=== PATIENT | female | born 1960 | race American Indian/Alaskan Native ===

== ENCOUNTER 2017-11-13 13:43 | Inpatient (IN) | payer SELFPAY ==
--- NOTE | 2017-11-13 16:22 | Emergency Department Report ---
ED Chest Pain HPI - General Chief Complaint: High BP Stated Complaint: HEAD PAIN/DIZZY Time Seen by Provider: 11/13/17 16:12 Source: patient Mode of arrival: Ambulatory Limitations: No Limitations - History of Present Illness Initial Comments: She is a 57-year-old female presents to emergency room with complaints of dizziness, lightheaded, chest pain, shortness of breath and vaginal bleeding. Patient states she's had vaginal bleeding secondary to her fibroids since 2017. Patient states her chest pain or shortness of breath are better with rest and worse with exertion. Patient states the chest pain is a 5 out of 10 and is not radiating into the center of her chest. Patient states that her dizziness and lightheaded and chest pain, shortness of breath started approximately 2 days ago. Patient states she had extremely high blood pressure at home at 283/100. Patient states she would also like to be checked for anemia due to her month-long vaginal bleeding. 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 MD Complaint: chest pain -: Sudden Onset: during rest Pain Location: substernal, left chest Pain Radiation: none Severity: moderate Severity scale (0 -10): 5 Quality: tightness Consistency: constant Improves With: rest Worsens With: exertion re: dyspnea. denies: nausea, vomting, diaphoresis, sense of impending doom Other Symptoms: denies: cough, fever, syncope, rash, acid taste in mouth, leg swelling, palpitations, burping Treatments Prior to Arrival: none Aspirin use within the Past 7 Days: (0) No - Related Data On Oral Contraceptives: No Allergies Allergy/AdvReac Type Severity Reaction Status Date / Time morphine Allergy Unknown Verified 11/13/17 15:45 Heart Score - HEART Score History: Moderately suspicious EKG: Non-specific Age: 45-65 Risk factors: 1-2 risk factors Troponin: < normal limit HEART Score: 4 ED Review of Systems ROS: Stated complaint: HEAD PAIN/DIZZY Other details as noted in HPI ED Past Medical Hx - Past Medical History Previous Medical History?: Yes Hx Hypertension: Yes Hx Diabetes: Yes Hx Psychiatric Treatment: Yes (anxiety) Additional medical history: fibroids - Surgical History Past Surgical History?: Yes Additional Surgical History: tonsilectomy/ myomectomy - Social History Smoking Status: Current Every Day Smoker Substance Use Type: None ED Physical Exam - General Limitations: No Limitations General appearance: alert, in no apparent distress - Head Head exam: Present: atraumatic, normocephalic - Eye Eye exam: Present: normal appearance, PERRL, EOMI, other (pale sclera) Pupils: Present: normal accommodation - ENT ENT exam: Present: mucous membranes moist - Neck Neck exam: Present: normal inspection - Respiratory Respiratory exam: Present: normal lung sounds bilaterally. Absent: respiratory distress - Cardiovascular Cardiovascular Exam: Present: regular rate, normal rhythm. Absent: systolic murmur, diastolic murmur, rubs, gallop - GI/Abdominal GI/Abdominal exam: Present: soft, normal bowel sounds - Extremities Exam Extremities exam: Present: normal inspection - Back Exam Back exam: Present: normal inspection - Neurological Exam Neurological exam: Present: alert, oriented X3 - Psychiatric Psychiatric exam: Present: normal affect, normal mood - Skin Skin exam: Present: warm, dry, intact, normal color. Absent: rash ED Course Vital Signs 11/13/17 11/13/17 11/13/17 14:19 14:31 14:43 Temperature 98.7 F Pulse Rate 80 78 Respiratory 12 13 18 Rate Blood Pressure 163/58 163/58 Blood Pressure 163/58 [Left] O2 Sat by Pulse 100 100 Oximetry 11/13/17 11/13/17 11/13/17 14:45 15:01 15:15 Temperature Pulse Rate 77 77 76 Respiratory 20 17 19 Rate Blood Pressure 163/58 141/54 156/69 Blood Pressure [Left] O2 Sat by Pulse 99 100 100 Oximetry 11/13/17 11/13/17 11/13/17 15:30 15:45 16:00 Temperature Pulse Rate 74 76 74 Respiratory 20 20 22 Rate Blood Pressure 152/71 161/71 Blood Pressure [Left] O2 Sat by Pulse 100 100 100 Oximetry 11/13/17 11/13/17 11/13/17 16:15 16:31 16:45 Temperature Pulse Rate 79 78 84 Respiratory 21 22 16 Rate Blood Pressure 174/67 172/71 Blood Pressure [Left] O2 Sat by Pulse 100 100 100 Oximetry 11/13/17 11/13/17 11/13/17 17:01 17:15 17:30 Temperature Pulse Rate 108 H 87 78 Respiratory 14 21 Rate Blood Pressure 161/71 161/71 137/69 Blood Pressure [Left] O2 Sat by Pulse 98 99 Oximetry 11/13/17 11/13/17 11/13/17 17:45 18:00 18:15 Temperature Pulse Rate 77 75 75 Respiratory 21 17 20 Rate Blood Pressure 137/69 166/79 152/70 Blood Pressure [Left] O2 Sat by Pulse 99 99 100 Oximetry 11/13/17 11/13/17 11/13/17 18:30 18:45 19:00 Temperature Pulse Rate 85 77 76 Respiratory 19 18 20 Rate Blood Pressure 159/60 161/65 179/76 Blood Pressure [Left] O2 Sat by Pulse 100 100 100 Oximetry - Reevaluation(s) Reevaluation #1: Discussed all results with patient. Patient agrees plan of care and admission. Patient will be admitted to the hospitalist service. 11/13/17 19:27 - Consultations Consultation #1: Was consulted for admission. Hospitalist to admit patient and assume care. Report given to Dr. Lindquist 11/13/17 19:27 JOSEY score - Josey Score Age > 65: (0) No Aspirin use within the Past 7 Days: (0) No 3 or more CAD Risk Factors: (0) No 2 or more Angina events in past 24 hrs: (1) Yes Known CAD with more than 50% Stenosis: (0) No Elevated Cardiac Markers: (0) No ST Deviation Greater than 0.5mm: (0) No JOSEY Score: 1 ED Medical Decision Making - Lab Data Result diagrams: 11/13/17 16:00 11/13/17 16:00 - EKG Data -: EKG Interpreted by Pr EKG shows normal: sinus rhythm, axis, intervals, QRS complexes, ST-T waves Rate: normal - EKG Data Interpretation: [facility] - Medical Decision Making Patient is a 57-year-old female presents to emergency room with complaints of chest pain shortness of breath and heavy vaginal bleeding. Patient states vaginal bleeding for 1 month. Patient was admitted to hospitalist service for further evaluation treatment. Patient was admitted also to rule out ACS and for transfusion of extremely low H&H from active bleeding. Patient PRBCs be started in the ER. Initial cardiac workup was negative. EKG as follows. Patient's UA was positive for leukocyte and a uti. She'll be given antibiotics and fluids. - Differential Diagnosis anemia of acute blood loss, cp, sob, GOMEZ, ACS, UTI. Critical Care Time: Yes Critical care attestation.: If time is entered above; I have spent that time in minutes in the direct care of this critically ill patient, excluding procedure time. Critical Care Time: 35 minutes for cc time ED Disposition Clinical Impression: Anemia due to acute blood loss, SOB (shortness of breath), GOMEZ (dyspnea on exertion) Chest pain Qualifiers: Chest pain type: unspecified Qualified Code(s): R07.9 - Chest pain, unspecified UTI (urinary tract infection) Qualifiers: Urinary tract infection type: acute cystitis Hematuria presence: with hematuria Qualified Code(s): N30.01 - Acute cystitis with hematuria Disposition: 09 OP ADMIT IP TO THIS HOSP Is pt being admited?: Yes Does the pt Need Aspirin: No Condition: Critical Time of Disposition: 19:27
[2017-11-13 16:35] LABS: Hematocrit 25.5 % (30.3-42.9); Hemoglobin 7.1 gm/dl (10.1-14.3); Mean Corpuscular HGB Conc 28 % (30-34); Mean Corpuscular Hemoglobin 18 pg (28-32); Mean Corpuscular Volume 65 fl (79-97); Platelet Count 227 K/mm3 (140-440); Red Blood Count 3.93 M/mm3 (3.65-5.03); Red Cell Distribution Width 22.3 % (13.2-15.2)
[2017-11-13 17:39] LABS: Basophils % (Manual) 0 % (0.0-1.8); RBC Morphology Normal; Total Cells Counted 100
[2017-11-13 18:15] LABS: Bacteria,Urine 3+ /HPF (Negative); Bilirubin,Urine NEG (Negative); Blood,Urine LG (Negative); Color,Urine Yellow (Yellow); Mucus,Urine FEW /HPF; Urobilinogen,Urine < 2.0 mg/dL (<2.0)
[2017-11-13 18:17] LABS: RBC,Urine > 182.0 /HPF (0.0-6.0)
[2017-11-13 18:44] LABS: BUN/Creatinine Ratio 18; Blood Urea Nitrogen 9 mg/dL (7-17); Calcium 8.5 mg/dL (8.4-10.2); Hemolysis Index 0
[2017-11-13] MEDS ORDERED: NACL 0.9% 500 ML 500 ML IV ONE (19:30)
[2017-11-13] MEDS ORDERED: ROCEPHIN/NS 1 GM/50 ML 1 GM/50 ML BAG IV ONE (20:54)
[2017-11-13] MEDS ORDERED: DILAUDID IV ONE (22:50)
[2017-11-13] MEDS ORDERED: SODIUM CHLORIDE FLUSH SYRINGE 10 ML IV PRN (23:14)
[2017-11-13] MEDS ORDERED: TYLENOL PO PRN (23:14)
[2017-11-13] MEDS ORDERED: ZOFRAN IV PRN (23:14)
[2017-11-13] MEDS ORDERED: MORPHINE IV PRN (23:14)
--- NOTE | 2017-11-13 23:14 | History and Physical Report ---
History of Present Illness Date of examination: 11/13/17 History of present illness: 57-year-old lady with a history of hypertension, diabetes, anxiety, fibroids,'s emergency room with complaint of feeling lightheaded, dizzy, shortness of breath 3 days. She has been having vaginal bleeding since October 05, heavy bleeding. Also complaining of chest pain in the left chest, shooting pain, 3 days, intermittent to 1 minute, no radiation, cannot identify exacerbating or relieving factors. No nausea vomiting, diaphoresis, palpitation Review of systems Constitutional: no weight loss, chills, fever Ears, eyes, nose, mouth and throat: no nasal congestion, no nasal discharge, no sinus pressure, no vision change, no red eye. Neck: No neck pain or rigidity. Cardiovascular: +chest pain Respiratory: no cough, shortness of breath Gastrointestinal: no abdominal pain hematochezia Genitourinary : no frequency , no hematuria Musculoskeletal: no joint swelling or muscle ache Integumentary: no rash, no pruritis Neurological: no parathesias, no numbness, no focal weakness Endocrine: no cold or heat intolerance, no polyuria or polydipsia Hematologic/Lymphatic: no easy bruising, no easy bleeding, no gland swelling Allergic/Immunologic: no urticaria, no angioedema. PAST MEDICAL HISTORY: None PAST SURGICAL HISTORY: Myomectomy, tonsillectomy SOCIAL HISTORY: No alcohol, no drugs, tobacco FAMILY HISTORY: Hypertension Medications and Allergies Allergies Allergy/AdvReac Type Severity Reaction Status Date / Time morphine Allergy Unknown Verified 11/13/17 15:45 Home Medications Medication Instructions Recorded Confirmed Last Taken Type Ferrous Sulfate [Iron] 325 mg PO QAM 11/13/17 11/13/17 Unknown History Lisinopril [Zestril] 10 mg PO DAILY 11/13/17 11/13/17 Unknown History Mv,Rodrick,Min/Iron/Folic Acid/Lut 1 each PO DAILY 11/13/17 11/13/17 Unknown History [Complete Multi Tablet] Ranitidine HCl [Zantac 150 MG TAB] 150 mg PO BID 11/13/17 11/13/17 Unknown History Exam - Physical Exam Narrative exam: Gen. appearance: Patient lying in bed, no apparent distress HEENT: Normocephalic, atraumatic, pupils equally round and reactive to light, extraocular movement intact, and no sclericterus,. No JVD or thyromegaly or nodule,neck supple, no carotid bruit ,mucous membranes moist, no exudate or erythema Heart: S1, S2, regular rate and rhythm Lungs: Clear bilaterally, breathing comfortable Abdomen: Positive bowel sounds, non-tender, nondistended, no organomegaly Extremity:no edema cyanosis, clubbing Skin: no rash, dry, warm Neuro: Oriented 3, cranial nerves II-12 intact, speech is fluent, motor and sensory intact - Constitutional Vitals: Temp Pulse Resp BP Pulse Ox 98.5 F 87 22 169/75 100 11/13/17 21:15 11/13/17 22:45 11/13/17 22:45 11/13/17 22:45 11/13/17 22:45 Results - Labs CBC & Chem 7: 11/13/17 16:00 11/13/17 16:00 Labs: Abnormal lab results 11/13/17 11/13/17 11/13/17 Range/Units 15:57 16:00 16:00 Hgb 7.1 L (10.1-14.3) gm/dl Hct 25.5 L (30.3-42.9) % MCV 65 L (79-97) fl MCH 18 L (28-32) pg MCHC 28 L (30-34) % RDW 22.3 H (13.2-15.2) % Lymphocytes % (Manual) 38.0 H (13.4-35.0) % Monocytes % (Manual) 8.0 H (0.0-7.3) % Chloride 107.7 H (98-107) mmol/L Carbon Dioxide 21 L (22-30) mmol/L Creatinine 0.5 L (0.7-1.2) mg/dL Urine WBC (Auto) (0.0-6.0) /HPF Crossmatch See Detail 11/13/17 Range/Units 16:55 Hgb (10.1-14.3) gm/dl Hct (30.3-42.9) % MCV (79-97) fl MCH (28-32) pg MCHC (30-34) % RDW (13.2-15.2) % Lymphocytes % (Manual) (13.4-35.0) % Monocytes % (Manual) (0.0-7.3) % Chloride (98-107) mmol/L Carbon Dioxide (22-30) mmol/L Creatinine (0.7-1.2) mg/dL Urine WBC (Auto) 146.0 H (0.0-6.0) /HPF Crossmatch - Imaging and Cardiology EKG: image reviewed Assessment and Plan Assessment Vaginal bleeding secondary to fibroids Symptomatic anemia Chest pain most likely secondary to anemia Diabetes Hypertension Plan Admit medicine transfuse blood consult STONECUTTER HAND Check cardiac cardiac enzymes, stress test DVT prophylaxis checkfingersticks and initiate insulin sliding scale DVT prophylaxis
[2017-11-13] MEDS ORDERED: APRESOLINE IV PRN (23:24)
[2017-11-14 02:21] LABS: Creatine Kinase MB 1.9 ng/mL (0.0-4.0)
[2017-11-14] MEDS: DILAUDID IV PRN ×3 (03:42→20:46)
[2017-11-14 05:56] LABS: Mean Corpuscular HGB Conc 32 % (30-34); Platelet Count 331 K/mm3 (140-440); Red Blood Count 2.43 M/mm3 (3.65-5.03)
[2017-11-14 05:59] LABS: Hemoglobin 5.1 gm/dl (10.1-14.3); Mean Corpuscular Hemoglobin 21 pg (28-32); Mean Corpuscular Volume 66 fl (79-97)
[2017-11-14 06:07] LABS: BUN/Creatinine Ratio 18; Blood Urea Nitrogen 9 mg/dL (7-17); Calcium 8.5 mg/dL (8.4-10.2); Hemolysis Index 0
[2017-11-14 06:13] LABS: Creatine Kinase MB 1.7 ng/mL (0.0-4.0)
[2017-11-14] MEDS ORDERED: NACL 0.9% 500 ML 500 ML IV ONE (06:25)
[2017-11-14 08:37] LABS: Anisocytosis 2+; Hypochromasia 2+; Ovalocytes Few; Poikilocytosis 1+; Total Cells Counted 100
[2017-11-14 08:38] LABS: Platelet Estimate Cons
--- NOTE | 2017-11-14 08:42 | Progress Note ---
Assessment and Plan Assessment and plan: 57-year-old female with past medical history significant for anemia, diabetes mellitus presented to the emergency department with complaints of dizziness, shortness of breath and chest pain. Patient has been having vaginal bleeding for over one month. The ED lab showed that she is anemic. Hemoglobin is 5.1 Symptomatic anemia secondary to vagina bleeding - 3 units of packed RBC transfusion ordered - We will follow H&H, transfused as needed Vaginal bleeding - CUSTOM BOW MAKER consulted -Transvaginal/pelvic ultrasound ordered Chest pain - Likely due to anemia - We'll do stress test once stable DVT prophylaxis - SCDs Disposition - Continue inpatient care History Interval history: Patient was seen and evaluated at the bedside, she was getting blood transfusion by the time I saw her. She was complaining itching. Dizziness and shortness of breath subsided. Hospitalist Physical - Physical exam Narrative exam: Not in cardiopulmonary distress. The patient is obese. Vital signs as documented. Head exam is unremarkable. No scleral icterus . Neck is without jugular venous distension, thyromegaly, or carotid bruits. Lungs are clear to auscultation. Cardiac exam reveals regular rate and Rhythm. First and second heart sounds normal. No murmurs, rubs or gallops. Abdominal exam reveals normal bowel sounds, no masses, no organomegaly and no aortic enlargement. Extremities are nonedematous and both femoral and pedal pulses are normal. DATA ANALYSIS MANAGER: Alert and oriented 3. No focal weakness. - Constitutional Vitals: Temp Pulse Resp BP Pulse Ox 97.6 F 77 20 144/69 100 11/14/17 03:44 11/14/17 05:01 11/14/17 03:44 11/14/17 05:01 11/14/17 05:01 Results - Labs CBC & Chem 7: 11/14/17 05:06 11/14/17 05:06 Labs: Laboratory Last Values WBC 8.2 K/mm3 (4.5-11.0) 11/14/17 05:06 RBC 2.43 M/mm3 (3.65-5.03) L 11/14/17 05:06 Hgb 5.1 gm/dl (10.1-14.3) L* 11/14/17 05:06 Hct 16.0 % (30.3-42.9) L* D 11/14/17 05:06 MCV 66 fl (79-97) L 11/14/17 05:06 MCH 21 pg (28-32) L 11/14/17 05:06 MCHC 32 % (30-34) 11/14/17 05:06 RDW 25.0 % (13.2-15.2) H 11/14/17 05:06 Plt Count 331 K/mm3 (140-440) 11/14/17 05:06 Add Manual Diff Complete 11/13/17 16:00 Total Counted 100 11/13/17 16:00 Seg Neuts % (Manual) 53.0 % (40.0-70.0) 11/13/17 16:00 Band Neutrophils % 0 % 11/13/17 16:00 Lymphocytes % (Manual) 38.0 % (13.4-35.0) H 11/13/17 16:00 Reactive Lymphs % (Man) 0 % 11/13/17 16:00 Monocytes % (Manual) 8.0 % (0.0-7.3) H 11/13/17 16:00 Eosinophils % (Manual) 1.0 % (0.0-4.3) 11/13/17 16:00 Basophils % (Manual) 0 % (0.0-1.8) 11/13/17 16:00 Metamyelocytes % 0 % 11/13/17 16:00 Myelocytes % 0 % 11/13/17 16:00 Promyelocytes % 0 % 11/13/17 16:00 Blast Cells % 0 % 11/13/17 16:00 Nucleated RBC % Not Reportable 11/13/17 16:00 Seg Neutrophils # Man 2.4 K/mm3 (1.8-7.7) 11/13/17 16:00 Band Neutrophils # 0.0 K/mm3 11/13/17 16:00 Lymphocytes # (Manual) 1.7 K/mm3 (1.2-5.4) 11/13/17 16:00 Abs React Lymphs (Man) 0.0 K/mm3 11/13/17 16:00 Monocytes # (Manual) 0.4 K/mm3 (0.0-0.8) 11/13/17 16:00 Eosinophils # (Manual) 0.0 K/mm3 (0.0-0.4) 11/13/17 16:00 Basophils # (Manual) 0.0 K/mm3 (0.0-0.1) 11/13/17 16:00 Metamyelocytes # 0.0 K/mm3 11/13/17 16:00 Myelocytes # 0.0 K/mm3 11/13/17 16:00 Promyelocytes # 0.0 K/mm3 11/13/17 16:00 Blast Cells # 0.0 K/mm3 11/13/17 16:00 WBC Morphology Not Reportable 11/13/17 16:00 Hypersegmented Neuts Not Reportable 11/13/17 16:00 Hyposegmented Neuts Not Reportable 11/13/17 16:00 Hypogranular Neuts Not Reportable 11/13/17 16:00 Smudge Cells Not Reportable 11/13/17 16:00 Toxic Granulation Not Reportable 11/13/17 16:00 Toxic Vacuolation Not Reportable 11/13/17 16:00 Dohle Bodies Not Reportable 11/13/17 16:00 Pelger-Huet Anomaly Not Reportable 11/13/17 16:00 Sacha Rods Not Reportable 11/13/17 16:00 Platelet Estimate Not Reportable 11/13/17 16:00 Clumped Platelets Not Reportable 11/13/17 16:00 Plt Clumps, EDTA Not Reportable 11/13/17 16:00 Large Platelets Not Reportable 11/13/17 16:00 Giant Platelets Not Reportable 11/13/17 16:00 Platelet Satelliting Not Reportable 11/13/17 16:00 Plt Morphology Comment Not Reportable 11/13/17 16:00 RBC Morphology Normal 11/13/17 16:00 Dimorphic RBCs Not Reportable 11/13/17 16:00 Polychromasia Not Reportable 11/13/17 16:00 Hypochromasia Not Reportable 11/13/17 16:00 Poikilocytosis Not Reportable 11/13/17 16:00 Anisocytosis Not Reportable 11/13/17 16:00 Microcytosis Not Reportable 11/13/17 16:00 Macrocytosis Not Reportable 11/13/17 16:00 Spherocytes Not Reportable 11/13/17 16:00 Pappenheimer Bodies Not Reportable 11/13/17 16:00 Sickle Cells Not Reportable 11/13/17 16:00 Target Cells Not Reportable 11/13/17 16:00 Tear Drop Cells Not Reportable 11/13/17 16:00 Ovalocytes Not Reportable 11/13/17 16:00 Helmet Cells Not Reportable 11/13/17 16:00 [place] Bodies Not Reportable 11/13/17 16:00 Dow[place] Rings Not Reportable 11/13/17 16:00 Silvana Cells Not Reportable 11/13/17 16:00 Bite Cells Not Reportable 11/13/17 16:00 Crenated Cell Not Reportable 11/13/17 16:00 Elliptocytes Not Reportable 11/13/17 16:00 Acanthocytes (Spur) Not Reportable 11/13/17 16:00 Rouleaux Not Reportable 11/13/17 16:00 Hemoglobin C Crystals Not Reportable 11/13/17 16:00 Schistocytes Not Reportable 11/13/17 16:00 Malaria parasites Not Reportable 11/13/17 16:00 [place] Bodies Not Reportable 11/13/17 16:00 Hem Pathologist Commnt No 11/13/17 16:00 Sodium 138 mmol/L (137-145) 11/14/17 05:06 Potassium 3.7 mmol/L (3.6-5.0) 11/14/17 05:06 Chloride 102.0 mmol/L (98-107) 11/14/17 05:06 Carbon Dioxide 22 mmol/L (22-30) 11/14/17 05:06 Anion Gap 18 mmol/L 11/14/17 05:06 BUN 9 mg/dL (7-17) 11/14/17 05:06 Creatinine 0.5 mg/dL (0.7-1.2) L 11/14/17 05:06 Estimated GFR > 60 ml/min 11/14/17 05:06 BUN/Creatinine Ratio 18 % 11/14/17 05:06 Glucose 109 mg/dL (65-100) H 11/14/17 05:06 Calcium 8.5 mg/dL (8.4-10.2) 11/14/17 05:06 Total Creatine Kinase 72 units/L (30-135) 11/14/17 05:06 CK-MB (CK-2) 1.7 ng/mL (0.0-4.0) 11/14/17 05:06 CK-MB (CK-2) Rel Index 2.3 (0-4) 11/14/17 05:06 Troponin T < 0.010 ng/mL (0.00-0.029) 11/14/17 05:06 NT-Pro-B Natriuret Pep 220.1 pg/mL (0-900) 11/13/17 16:00 Urine Color Yellow (Yellow) 11/13/17 16:55 Urine Turbidity Slightly-cloudy (Clear) 11/13/17 16:55 Urine pH 6.0 (5.0-7.0) 11/13/17 16:55 Ur Specific [place] 1.013 (1.003-1.030) 11/13/17 16:55 Urine Protein 100 mg/dl mg/dL (Negative) 11/13/17 16:55 Urine Glucose (UA) Neg mg/dL (Negative) 11/13/17 16:55 Urine Ketones Neg mg/dL (Negative) 11/13/17 16:55 Urine Blood Lg (Negative) 11/13/17 16:55 Urine Nitrite Neg (Negative) 11/13/17 16:55 Urine Bilirubin Neg (Negative) 11/13/17 16:55 Urine Urobilinogen < 2.0 mg/dL (<2.0) 11/13/17 16:55 Ur Leukocyte Esterase Mod (Negative) 11/13/17 16:55 Urine WBC (Auto) 146.0 /HPF (0.0-6.0) H 11/13/17 16:55 Urine RBC (Auto) > 182.0 /HPF (0.0-6.0) 11/13/17 16:55 U Epithel Cells (Auto) 7.0 /HPF (0-13.0) 11/13/17 16:55 Urine Bacteria (Auto) 3+ /HPF (Negative) 11/13/17 16:55 Urine Mucus Few /HPF 11/13/17 16:55 Urine Yeast (Budding) 3+ /HPF 11/13/17 16:55 Blood Type O POSITIVE 11/13/17 15:57 Antibody Screen Negative 11/13/17 15:57 Crossmatch See Detail 11/13/17 15:57
[2017-11-14] MEDS ORDERED: APRESOLINE IV PRN (10:01)
[2017-11-14] MEDS: SODIUM CHLORIDE FLUSH SYRINGE 10 ML IV SCH ×2 (10:32→22:39)
--- NOTE | 2017-11-14 11:10 | Ultrasound Report ---
ULTRASOUND PELVIS COMPLETE - TRANSABDOMINAL AND TRANSVAGINAL: INDICATION: Postmenopausal bleeding. COMPARISON: None similar at this institution. FINDINGS: Transabdominal and transvaginal pelvic sonography performed in this postmenopausal patient demonstrates a 13.2 x 8.5 x 9.3 cm anteverted, heterogeneous uterus with an approximately 6.1 x 5.6 x 6.1 cm mid to lower uterine solid mass centrally as on endovaginal image 13. Endometrium appears displaced with echogenic stripe thickness estimated at 2.5 cm towards the fundus, endovaginal image 11, where felt seen. Tiny nabothian cyst noted. No significant pelvic free fluid. Right ovary not visualized. Approximately 6 x 5.9 x 5.7 cm left ovary may demonstrate a 4.6 x 4.5 cm intrinsic cyst as on endovaginal images 19-20. CONCLUSION: 1. Enlarged uterus with mid to lower uterine mass, presumably a fibroid, as described. 2. Prominent/thickened endometrium for postmenopausal state. STUD SETTER correlation suggested. 3. Left ovarian cyst/enlargement. 4. Right ovary not visualized. Thank you for the opportunity to participate in this patient's care.
--- NOTE | 2017-11-14 11:10 | Ultrasound Report ---
ULTRASOUND PELVIS COMPLETE - TRANSABDOMINAL AND TRANSVAGINAL: INDICATION: Postmenopausal bleeding. COMPARISON: None similar at this institution. FINDINGS: Transabdominal and transvaginal pelvic sonography performed in this postmenopausal patient demonstrates a 13.2 x 8.5 x 9.3 cm anteverted, heterogeneous uterus with an approximately 6.1 x 5.6 x 6.1 cm mid to lower uterine solid mass centrally as on endovaginal image 13. Endometrium appears displaced with echogenic stripe thickness estimated at 2.5 cm towards the fundus, endovaginal image 11, where felt seen. Tiny nabothian cyst noted. No significant pelvic free fluid. Right ovary not visualized. Approximately 6 x 5.9 x 5.7 cm left ovary may demonstrate a 4.6 x 4.5 cm intrinsic cyst as on endovaginal images 19-20. CONCLUSION: 1. Enlarged uterus with mid to lower uterine mass, presumably a fibroid, as described. 2. Prominent/thickened endometrium for postmenopausal state. CORPORATE SPECIALIST correlation suggested. 3. Left ovarian cyst/enlargement. 4. Right ovary not visualized. Thank you for the opportunity to participate in this patient's care.
[2017-11-14] MEDS ORDERED: NACL 0.9% 500 ML 500 ML IV NR (11:30)
[2017-11-14] MEDS: ROCEPHIN/NS 1 GM/50 ML 1 GM/50 ML BAG IV SCH (12:05)
--- NOTE | 2017-11-14 12:06 | Consultation ---
History of Present Illness Consult date: 11/14/17 Requesting physician: BINU VALENCIA Reason for consult: menorrhagia History of present illness: Pt is a 57yo BF LMP 10/05/17 with a history of hypertension, diabetes, anxiety, fibroids,'s presented to emergency room with complaint of feeling lightheaded, dizzy, shortness of breath 3 days. She has been having vaginal bleeding since October 05, heavy bleeding. Also complaining of chest pain in the left chest, shooting pain, 3 days, intermittent to 1 minute, no radiation, cannot identify exacerbating or relieving factors. No nausea vomiting, diaphoresis, palpitation Past History Past Medical History: hypertension Past Surgical History: myomectomy Social history: no significant social history, single Medications and Allergies Allergies Allergy/AdvReac Type Severity Reaction Status Date / Time morphine Allergy Unknown Verified 11/13/17 15:45 Home Medications Medication Instructions Recorded Confirmed Last Taken Type Ferrous Sulfate [Iron] 325 mg PO QAM 11/13/17 11/13/17 Unknown History Lisinopril [Zestril] 10 mg PO DAILY 11/13/17 11/13/17 Unknown History Mv,Rodrick,Min/Iron/Folic Acid/Lut 1 each PO DAILY 11/13/17 11/13/17 Unknown History [Complete Multi Tablet] Ranitidine HCl [Zantac 150 MG TAB] 150 mg PO BID 11/13/17 11/13/17 Unknown History Active Meds: Active Medications Acetaminophen (Tylenol) 650 mg PO Q4H PRN PRN Reason: Pain MILD(1-3)/Fever >100.5/MOYA Hydralazine HCl (Apresoline) 10 mg IV Q4H PRN PRN Reason: Hypertension Hydromorphone HCl (Dilaudid) 1 mg IV Q4H PRN PRN Reason: Pain, Moderate (4-6) Last Admin: 11/14/17 03:42 Dose: 1 mg Ceftriaxone Sodium (Rocephin/Ns 1 Gm/50 Ml) 1 gm in 50 mls @ 100 mls/hr IV Q24HR [facility]; Protocol Lisinopril (Zestril) 20 mg PO DAILY [facility] Ondansetron HCl (Zofran) 4 mg IV Q8H PRN PRN Reason: Nausea And Vomiting Sodium Chloride (Sodium Chloride Flush Syringe 10 Ml) 10 ml IV BID VIVIENNE Sodium Chloride (Sodium Chloride Flush Syringe 10 Ml) 10 ml IV PRN PRN PRN Reason: LINE FLUSH Review of Systems All systems: negative - Vital Signs Vital signs: Vital Signs Resp 12 11/13/17 14:19 Temp Pulse Resp BP Pulse Ox 97.7 F 74 76 H 198/81 100 11/14/17 08:41 11/14/17 08:41 11/14/17 08:41 11/14/17 08:41 11/14/17 08:41 - Physical Exam Breasts: Positive: deferred Cardiovascular: Regular rate Lungs: Positive: Clear to auscultation Abdomen: Positive: normal appearance Genitourinary (Female): Positive: normal external genitalia Uterus: Positive: enlarged Results Result Diagrams: 11/14/17 05:06 11/14/17 05:06 Abnormal lab results 11/13/17 11/13/17 11/13/17 Range/Units 15:57 16:00 16:00 RBC (3.65-5.03) M/mm3 Hgb 7.1 L (10.1-14.3) gm/dl Hct 25.5 L (30.3-42.9) % MCV 65 L (79-97) fl MCH 18 L (28-32) pg MCHC 28 L (30-34) % RDW 22.3 H (13.2-15.2) % Lymphocytes % (Manual) 38.0 H (13.4-35.0) % Monocytes % (Manual) 8.0 H (0.0-7.3) % Chloride 107.7 H (98-107) mmol/L Carbon Dioxide 21 L (22-30) mmol/L Creatinine 0.5 L (0.7-1.2) mg/dL Glucose (65-100) mg/dL Urine WBC (Auto) (0.0-6.0) /HPF Crossmatch See Detail 11/13/17 11/14/17 11/14/17 Range/Units 16:55 05:06 05:06 RBC 2.43 L (3.65-5.03) M/mm3 Hgb 5.1 L* (10.1-14.3) gm/dl Hct 16.0 L* D (30.3-42.9) % MCV 66 L (79-97) fl MCH 21 L (28-32) pg MCHC (30-34) % RDW 25.0 H (13.2-15.2) % Lymphocytes % (Manual) (13.4-35.0) % Monocytes % (Manual) (0.0-7.3) % Chloride (98-107) mmol/L Carbon Dioxide (22-30) mmol/L Creatinine 0.5 L (0.7-1.2) mg/dL Glucose 109 H (65-100) mg/dL Urine WBC (Auto) 146.0 H (0.0-6.0) /HPF Crossmatch All other labs normal. Ultrasound: pending Assessment and Plan - Patient Problems (1) Menorrhagia with irregular cycle Onset Date: 11/14/17 Current Visit: Yes Status: Acute Plan to address problem: A: Menorrhagia - most likely due to uterine fibroids Symptomatic anemia P: Agree with admission for blood transfusion Will obtain a pelvic u/s She can follow up with me in the office for further evaluation - including a Pap and possible surgery (2) Anemia due to acute blood loss Onset Date: 11/14/17 Current Visit: Yes Status: Acute
[2017-11-14] MEDS: ZESTRIL PO SCH (12:43)
[2017-11-14] MEDS ORDERED: BENADRYL PO PRN (15:46)
[2017-11-14 19:26] LABS: Hematocrit 21.5 % (30.3-42.9)
[2017-11-14] MEDS: PEPCID PO SCH ×2 (20:47→22:00)
[2017-11-14] MEDS ORDERED: NON-FORMULARY (Ranitidine Hcl [Zantac 150 Mg Tab] 150 MG) PO SCH (22:00)
[2017-11-15 05:51] LABS: Hemoglobin 6.6 gm/dl (10.1-14.3); Mean Corpuscular HGB Conc 31 % (30-34); Mean Corpuscular Volume 74 fl (79-97); Platelet Count 342 K/mm3 (140-440); Red Blood Count 2.84 M/mm3 (3.65-5.03)
[2017-11-15 06:00] LABS: Mean Corpuscular Hemoglobin 23 pg (28-32); Red Cell Distribution Width 29.1 % (13.2-15.2)
[2017-11-15 06:14] LABS: BUN/Creatinine Ratio 13; Blood Urea Nitrogen 8 mg/dL (7-17); Calcium 8.6 mg/dL (8.4-10.2); Hemolysis Index 7
[2017-11-15 06:51] LABS: Anisocytosis 3+; Hypochromasia 2+; Platelet Estimate Consistent w Auto; Sickle Cells Rare; Total Cells Counted 100
[2017-11-15] MEDS ORDERED: NACL 0.9% 500 ML 500 ML IV ONE (08:46)
[2017-11-15] MEDS: PERCOCET 5/325 PO PRN ×2 (09:27→18:02)
[2017-11-15] MEDS: ZESTRIL PO SCH (09:29)
[2017-11-15] MEDS: PEPCID PO SCH ×2 (09:30→21:43)
[2017-11-15] MEDS: ROCEPHIN/NS 1 GM/50 ML 1 GM/50 ML BAG IV SCH (10:30)
[2017-11-15] MEDS: SODIUM CHLORIDE FLUSH SYRINGE 10 ML IV SCH ×2 (10:32→21:43)
--- NOTE | 2017-11-15 13:38 | Progress Note ---
Assessment and Plan Assessment and plan: 57-year-old female with past medical history significant for anemia, diabetes mellitus presented to the emergency department with complaints of dizziness, shortness of breath and chest pain. Patient has been having vaginal bleeding for over one month. The ED lab showed that she is anemic. Hemoglobin is 5.1 Symptomatic anemia secondary to vagina bleeding -Transfused 4 units of blood, post transfusion hemoglobin is 6.6, patient has active vaginal bleeding, and SUPERVISOR ELECTRIC to evaluate the patient - We'll transfuse another 2 units of blood - We will follow H&H, transfused as needed Vaginal bleeding - SUPERVISOR ELECTRIC consulted and evaluated yesterday, and I called today to reevaluate the patient because the patient has active vaginal bleeding -Transvaginal/pelvic ultrasound, showed mass in the uterus Chest pain - Likely due to anemia -Resolved DVT prophylaxis - SCDs Disposition - Continue inpatient care History Interval history: Patient was seen and evaluated at the bedside, patient was transfused with 4 units of blood. Patient has active bleeding, I called Mary the computer assembler for Dr. Dash's group @[phone] and she said she'll call the oncall Dr Barr to reevaluate the patient. Hospitalist Physical - Physical exam Narrative exam: Not in cardiopulmonary distress. The patient is obese. Vital signs as documented. Head exam is unremarkable. No scleral icterus . Neck is without jugular venous distension, thyromegaly, or carotid bruits. Lungs are clear to auscultation. Cardiac exam reveals regular rate and Rhythm. First and second heart sounds normal. No murmurs, rubs or gallops. Abdominal exam reveals normal bowel sounds, no masses, no organomegaly and no aortic enlargement. Extremities are nonedematous and both femoral and pedal pulses are normal. MANAGER STERILE: Alert and oriented 3. No focal weakness. - Constitutional Vitals: Temp Pulse Resp BP Pulse Ox 98.9 F 61 18 99/51 100 11/15/17 11:39 11/15/17 11:39 11/15/17 11:39 11/15/17 11:39 11/15/17 11:39 Results - Labs CBC & Chem 7: 11/15/17 04:06 11/15/17 04:06 Labs: Laboratory Last Values WBC 7.8 K/mm3 (4.5-11.0) 11/15/17 04:06 RBC 2.84 M/mm3 (3.65-5.03) L 11/15/17 04:06 Hgb 6.6 gm/dl (10.1-14.3) L 11/15/17 04:06 Hct 21.0 % (30.3-42.9) L 11/15/17 04:06 MCV 74 fl (79-97) L 11/15/17 04:06 MCH 23 pg (28-32) L 11/15/17 04:06 MCHC 31 % (30-34) 11/15/17 04:06 RDW 29.1 % (13.2-15.2) H 11/15/17 04:06 Plt Count 342 K/mm3 (140-440) 11/15/17 04:06 Add Manual Diff Complete 11/15/17 04:06 Total Counted 100 11/15/17 04:06 Seg Neuts % (Manual) 56.0 % (40.0-70.0) 11/15/17 04:06 Band Neutrophils % 0 % 11/15/17 04:06 Lymphocytes % (Manual) 30.0 % (13.4-35.0) 11/15/17 04:06 Reactive Lymphs % (Man) 0 % 11/15/17 04:06 Monocytes % (Manual) 7.0 % (0.0-7.3) 11/15/17 04:06 Eosinophils % (Manual) 3.0 % (0.0-4.3) 11/15/17 04:06 Basophils % (Manual) 4.0 % (0.0-1.8) H 11/15/17 04:06 Metamyelocytes % 0 % 11/15/17 04:06 Myelocytes % 0 % 11/15/17 04:06 Promyelocytes % 0 % 11/15/17 04:06 Blast Cells % 0 % 11/15/17 04:06 Nucleated RBC % 1.0 % (0.0-0.9) H 11/15/17 04:06 Seg Neutrophils # Man 4.4 K/mm3 (1.8-7.7) 11/15/17 04:06 Band Neutrophils # 0.0 K/mm3 11/15/17 04:06 Lymphocytes # (Manual) 2.3 K/mm3 (1.2-5.4) 11/15/17 04:06 Abs React Lymphs (Man) 0.0 K/mm3 11/15/17 04:06 Monocytes # (Manual) 0.5 K/mm3 (0.0-0.8) 11/15/17 04:06 Eosinophils # (Manual) 0.2 K/mm3 (0.0-0.4) 11/15/17 04:06 Basophils # (Manual) 0.3 K/mm3 (0.0-0.1) H 11/15/17 04:06 Metamyelocytes # 0.0 K/mm3 11/15/17 04:06 Myelocytes # 0.0 K/mm3 11/15/17 04:06 Promyelocytes # 0.0 K/mm3 11/15/17 04:06 Blast Cells # 0.0 K/mm3 11/15/17 04:06 WBC Morphology Not Reportable 11/15/17 04:06 Hypersegmented Neuts Not Reportable 11/15/17 04:06 Hyposegmented Neuts Not Reportable 11/15/17 04:06 Hypogranular Neuts Not Reportable 11/15/17 04:06 Smudge Cells Not Reportable 11/15/17 04:06 Toxic Granulation Not Reportable 11/15/17 04:06 Toxic Vacuolation Not Reportable 11/15/17 04:06 Dohle Bodies Not Reportable 11/15/17 04:06 Pelger-Huet Anomaly Not Reportable 11/15/17 04:06 Sacha Rods Not Reportable 11/15/17 04:06 Platelet Estimate Consistent w auto 11/15/17 04:06 Clumped Platelets Not Reportable 11/15/17 04:06 Plt Clumps, EDTA Not Reportable 11/15/17 04:06 Large Platelets Not Reportable 11/15/17 04:06 Giant Platelets Not Reportable 11/15/17 04:06 Platelet Satelliting Not Reportable 11/15/17 04:06 Plt Morphology Comment Not Reportable 11/15/17 04:06 RBC Morphology Not Reportable 11/15/17 04:06 Dimorphic RBCs Not Reportable 11/15/17 04:06 Polychromasia Not Reportable 11/15/17 04:06 Hypochromasia 2+ 11/15/17 04:06 Poikilocytosis Not Reportable 11/15/17 04:06 Anisocytosis 3+ 11/15/17 04:06 Microcytosis Not Reportable 11/15/17 04:06 Macrocytosis Not Reportable 11/15/17 04:06 Spherocytes Not Reportable 11/15/17 04:06 Pappenheimer Bodies Not Reportable 11/15/17 04:06 Sickle Cells Rare 11/15/17 04:06 Target Cells Not Reportable 11/15/17 04:06 Tear Drop Cells Not Reportable 11/15/17 04:06 Ovalocytes Not Reportable 11/15/17 04:06 Helmet Cells Not Reportable 11/15/17 04:06 [place]ales[place] Bodies Not Reportable 11/15/17 04:06 Mobile Rings Not Reportable 11/15/17 04:06 Silvana Cells Not Reportable 11/15/17 04:06 Bite Cells Not Reportable 11/15/17 04:06 Crenated Cell Not Reportable 11/15/17 04:06 Elliptocytes Not Reportable 11/15/17 04:06 Acanthocytes (Spur) Not Reportable 11/15/17 04:06 Rouleaux Not Reportable 11/15/17 04:06 Hemoglobin C Crystals Not Reportable 11/15/17 04:06 Schistocytes Not Reportable 11/15/17 04:06 Malaria parasites Not Reportable 11/15/17 04:06 Franklin Bodies Not Reportable 11/15/17 04:06 Hem Pathologist Commnt No 11/15/17 04:06 Sodium 136 mmol/L (137-145) L 11/15/17 04:06 Potassium 4.4 mmol/L (3.6-5.0) 11/15/17 04:06 Chloride 103.7 mmol/L (98-107) 11/15/17 04:06 Carbon Dioxide 21 mmol/L (22-30) L 11/15/17 04:06 Anion Gap 16 mmol/L 11/15/17 04:06 BUN 8 mg/dL (7-17) 11/15/17 04:06 Creatinine 0.6 mg/dL (0.7-1.2) L 11/15/17 04:06 Estimated GFR > 60 ml/min 11/15/17 04:06 BUN/Creatinine Ratio 13 % 11/15/17 04:06 Glucose 116 mg/dL (65-100) H 11/15/17 04:06 Calcium 8.6 mg/dL (8.4-10.2) 11/15/17 04:06 Total Creatine Kinase 72 units/L (30-135) 11/14/17 05:06 CK-MB (CK-2) 1.7 ng/mL (0.0-4.0) 11/14/17 05:06 CK-MB (CK-2) Rel Index 2.3 (0-4) 11/14/17 05:06 Troponin T < 0.010 ng/mL (0.00-0.029) 11/14/17 05:06 NT-Pro-B Natriuret Pep 220.1 pg/mL (0-900) 11/13/17 16:00 Urine Color Yellow (Yellow) 11/13/17 16:55 Urine Turbidity Slightly-cloudy (Clear) 11/13/17 16:55 Urine pH 6.0 (5.0-7.0) 11/13/17 16:55 Ur Specific [place] 1.013 (1.003-1.030) 11/13/17 16:55 Urine Protein 100 mg/dl mg/dL (Negative) 11/13/17 16:55 Urine Glucose (UA) Neg mg/dL (Negative) 11/13/17 16:55 Urine Ketones Neg mg/dL (Negative) 11/13/17 16:55 Urine Blood Lg (Negative) 11/13/17 16:55 Urine Nitrite Neg (Negative) 11/13/17 16:55 Urine Bilirubin Neg (Negative) 11/13/17 16:55 Urine Urobilinogen < 2.0 mg/dL (<2.0) 11/13/17 16:55 Ur Leukocyte Esterase Mod (Negative) 11/13/17 16:55 Urine WBC (Auto) 146.0 /HPF (0.0-6.0) H 11/13/17 16:55 Urine RBC (Auto) > 182.0 /HPF (0.0-6.0) 11/13/17 16:55 U Epithel Cells (Auto) 7.0 /HPF (0-13.0) 11/13/17 16:55 Urine Bacteria (Auto) 3+ /HPF (Negative) 11/13/17 16:55 Urine Mucus Few /HPF 11/13/17 16:55 Urine Yeast (Budding) 3+ /HPF 11/13/17 16:55 Blood Type O POSITIVE 11/13/17 15:57 Antibody Screen Negative 11/13/17 15:57 Crossmatch See Detail 11/13/17 15:57
[2017-11-15] MEDS: PROVERA PO SCH (18:11)
[2017-11-16] MEDS: PERCOCET 5/325 PO PRN ×3 (03:20→18:16)
[2017-11-16 04:53] LABS: Hematocrit 27.2 % (30.3-42.9); Hemoglobin 8.7 gm/dl (10.1-14.3); Mean Corpuscular HGB Conc 32 % (30-34); Mean Corpuscular Volume 76 fl (79-97); Red Blood Count 3.58 M/mm3 (3.65-5.03)
[2017-11-16 04:54] LABS: Platelet Count 340 K/mm3 (140-440)
[2017-11-16 04:57] LABS: Mean Corpuscular Hemoglobin 24 pg (28-32); Red Cell Distribution Width 27.6 % (13.2-15.2)
[2017-11-16 05:07] LABS: BUN/Creatinine Ratio 17; Blood Urea Nitrogen 10 mg/dL (7-17); Calcium 8.6 mg/dL (8.4-10.2); Hemolysis Index 0
[2017-11-16 06:06] LABS: Anisocytosis 2+; Hypochromasia 1+; Platelet Estimate Consistent w Auto; Total Cells Counted 100
[2017-11-16] MEDS: ZESTRIL PO SCH (10:29)
[2017-11-16] MEDS: PEPCID PO SCH ×2 (10:29→21:41)
[2017-11-16] MEDS: PROVERA PO SCH (10:31)
[2017-11-16] MEDS: SODIUM CHLORIDE FLUSH SYRINGE 10 ML IV SCH ×2 (10:32→21:43)
[2017-11-16] MEDS: ROCEPHIN/NS 1 GM/50 ML 1 GM/50 ML BAG IV SCH (10:35)
--- NOTE | 2017-11-16 14:38 | Progress Note ---
Assessment and Plan Assessment and plan: 57-year-old female with past medical history significant for anemia, diabetes mellitus presented to the emergency department with complaints of dizziness, shortness of breath and chest pain. Patient has been having vaginal bleeding for over one month. The ED lab showed that she is anemic. Hemoglobin is 5.1 Symptomatic anemia secondary to vagina bleeding -Transfused 4 units of blood, post transfusion hemoglobin is 8.7, but patient still complaining active bleeding - We'll monitor overnight, if bleeding stopped and H&H stable she can be discharged tomorrow Vaginal bleeding - ROOFER APPLICATOR consulted and evaluated and started on medroxyprogesterone acetate -Transvaginal/pelvic ultrasound, showed mass in the uterus Chest pain - Likely due to anemia - Resolved DVT prophylaxis - SCDs Disposition - Continue inpatient care History Interval history: Patient was seen and evaluated at the bedside, patient was transfused with 4 units of blood. Patient has active bleeding. Hospitalist Physical - Physical exam Narrative exam: Not in cardiopulmonary distress. The patient is obese. Vital signs as documented. Head exam is unremarkable. No scleral icterus . Neck is without jugular venous distension, thyromegaly, or carotid bruits. Lungs are clear to auscultation. Cardiac exam reveals regular rate and Rhythm. First and second heart sounds normal. No murmurs, rubs or gallops. Abdominal exam reveals normal bowel sounds, no masses, no organomegaly and no aortic enlargement. Extremities are nonedematous and both femoral and pedal pulses are normal. CHARGE HAND: Alert and oriented 3. No focal weakness. - Constitutional Vitals: Temp Pulse Resp BP Pulse Ox 98.4 F 60 18 178/86 99 11/16/17 12:21 11/16/17 12:21 11/16/17 12:21 11/16/17 12:21 11/16/17 12:21 Results - Labs CBC & Chem 7: 11/16/17 03:18 11/16/17 03:18 Labs: Laboratory Last Values WBC 9.3 K/mm3 (4.5-11.0) 11/16/17 03:18 RBC 3.58 M/mm3 (3.65-5.03) L 11/16/17 03:18 Hgb 8.7 gm/dl (10.1-14.3) L 11/16/17 03:18 Hct 27.2 % (30.3-42.9) L D 11/16/17 03:18 MCV 76 fl (79-97) L 11/16/17 03:18 MCH 24 pg (28-32) L 11/16/17 03:18 MCHC 32 % (30-34) 11/16/17 03:18 RDW 27.6 % (13.2-15.2) H 11/16/17 03:18 Plt Count 340 K/mm3 (140-440) 11/16/17 03:18 Add Manual Diff Complete 11/16/17 03:18 Total Counted 100 11/16/17 03:18 Seg Neuts % (Manual) 65.0 % (40.0-70.0) 11/16/17 03:18 Band Neutrophils % 0 % 11/16/17 03:18 Lymphocytes % (Manual) 21.0 % (13.4-35.0) 11/16/17 03:18 Reactive Lymphs % (Man) 0 % 11/16/17 03:18 Monocytes % (Manual) 6.0 % (0.0-7.3) 11/16/17 03:18 Eosinophils % (Manual) 5.0 % (0.0-4.3) H 11/16/17 03:18 Basophils % (Manual) 3.0 % (0.0-1.8) H 11/16/17 03:18 Metamyelocytes % 0 % 11/16/17 03:18 Myelocytes % 0 % 11/16/17 03:18 Promyelocytes % 0 % 11/16/17 03:18 Blast Cells % 0 % 11/16/17 03:18 Nucleated RBC % Not Reportable 11/16/17 03:18 Seg Neutrophils # Man 6.0 K/mm3 (1.8-7.7) 11/16/17 03:18 Band Neutrophils # 0.0 K/mm3 11/16/17 03:18 Lymphocytes # (Manual) 2.0 K/mm3 (1.2-5.4) 11/16/17 03:18 Abs React Lymphs (Man) 0.0 K/mm3 11/16/17 03:18 Monocytes # (Manual) 0.6 K/mm3 (0.0-0.8) 11/16/17 03:18 Eosinophils # (Manual) 0.5 K/mm3 (0.0-0.4) H 11/16/17 03:18 Basophils # (Manual) 0.3 K/mm3 (0.0-0.1) H 11/16/17 03:18 Metamyelocytes # 0.0 K/mm3 11/16/17 03:18 Myelocytes # 0.0 K/mm3 11/16/17 03:18 Promyelocytes # 0.0 K/mm3 11/16/17 03:18 Blast Cells # 0.0 K/mm3 11/16/17 03:18 WBC Morphology Not Reportable 11/16/17 03:18 Hypersegmented Neuts Not Reportable 11/16/17 03:18 Hyposegmented Neuts Not Reportable 11/16/17 03:18 Hypogranular Neuts Not Reportable 11/16/17 03:18 Smudge Cells Not Reportable 11/16/17 03:18 Toxic Granulation Not Reportable 11/16/17 03:18 Toxic Vacuolation Not Reportable 11/16/17 03:18 Dohle Bodies Not Reportable 11/16/17 03:18 Pelger-Huet Anomaly Not Reportable 11/16/17 03:18 Sacha Rods Not Reportable 11/16/17 03:18 Platelet Estimate Consistent w auto 11/16/17 03:18 Clumped Platelets Not Reportable 11/16/17 03:18 Plt Clumps, EDTA Not Reportable 11/16/17 03:18 Large Platelets Not Reportable 11/16/17 03:18 Giant Platelets Not Reportable 11/16/17 03:18 Platelet Satelliting Not Reportable 11/16/17 03:18 Plt Morphology Comment Not Reportable 11/16/17 03:18 RBC Morphology Not Reportable 11/16/17 03:18 Dimorphic RBCs Not Reportable 11/16/17 03:18 Polychromasia Not Reportable 11/16/17 03:18 Hypochromasia 1+ 11/16/17 03:18 Poikilocytosis Not Reportable 11/16/17 03:18 Anisocytosis 2+ 11/16/17 03:18 Microcytosis 1+ 11/16/17 03:18 Macrocytosis Not Reportable 11/16/17 03:18 Spherocytes Not Reportable 11/16/17 03:18 Pappenheimer Bodies Not Reportable 11/16/17 03:18 Sickle Cells Not Reportable 11/16/17 03:18 Target Cells Not Reportable 11/16/17 03:18 Tear Drop Cells Not Reportable 11/16/17 03:18 Ovalocytes Not Reportable 11/16/17 03:18 Helmet Cells Not Reportable 11/16/17 03:18 Morales-[place] Bodies Not Reportable 11/16/17 03:18 [place] Rings Not Reportable 11/16/17 03:18 Silvana Cells Not Reportable 11/16/17 03:18 Bite Cells Not Reportable 11/16/17 03:18 Crenated Cell Not Reportable 11/16/17 03:18 Elliptocytes Not Reportable 11/16/17 03:18 Acanthocytes (Spur) Not Reportable 11/16/17 03:18 Rouleaux Not Reportable 11/16/17 03:18 Hemoglobin C Crystals Not Reportable 11/16/17 03:18 Schistocytes Not Reportable 11/16/17 03:18 Malaria parasites Not Reportable 11/16/17 03:18 Franklin Bodies Not Reportable 11/16/17 03:18 Hem Pathologist Commnt No 11/16/17 03:18 Sodium 138 mmol/L (137-145) 11/16/17 03:18 Potassium 4.3 mmol/L (3.6-5.0) 11/16/17 03:18 Chloride 104.3 mmol/L (98-107) 11/16/17 03:18 Carbon Dioxide 23 mmol/L (22-30) 11/16/17 03:18 Anion Gap 15 mmol/L 11/16/17 03:18 BUN 10 mg/dL (7-17) 11/16/17 03:18 Creatinine 0.6 mg/dL (0.7-1.2) L 11/16/17 03:18 Estimated GFR > 60 ml/min 11/16/17 03:18 BUN/Creatinine Ratio 17 % 11/16/17 03:18 Glucose 91 mg/dL (65-100) 11/16/17 03:18 POC Glucose 130 (70-105) H 11/15/17 21:13 Calcium 8.6 mg/dL (8.4-10.2) 11/16/17 03:18 Total Creatine Kinase 72 units/L (30-135) 11/14/17 05:06 CK-MB (CK-2) 1.7 ng/mL (0.0-4.0) 11/14/17 05:06 CK-MB (CK-2) Rel Index 2.3 (0-4) 11/14/17 05:06 Troponin T < 0.010 ng/mL (0.00-0.029) 11/14/17 05:06 NT-Pro-B Natriuret Pep 220.1 pg/mL (0-900) 11/13/17 16:00 Urine Color Yellow (Yellow) 11/13/17 16:55 Urine Turbidity Slightly-cloudy (Clear) 11/13/17 16:55 Urine pH 6.0 (5.0-7.0) 11/13/17 16:55 Ur Specific [place] 1.013 (1.003-1.030) 11/13/17 16:55 Urine Protein 100 mg/dl mg/dL (Negative) 11/13/17 16:55 Urine Glucose (UA) Neg mg/dL (Negative) 11/13/17 16:55 Urine Ketones Neg mg/dL (Negative) 11/13/17 16:55 Urine Blood Lg (Negative) 11/13/17 16:55 Urine Nitrite Neg (Negative) 11/13/17 16:55 Urine Bilirubin Neg (Negative) 11/13/17 16:55 Urine Urobilinogen < 2.0 mg/dL (<2.0) 11/13/17 16:55 Ur Leukocyte Esterase Mod (Negative) 11/13/17 16:55 Urine WBC (Auto) 146.0 /HPF (0.0-6.0) H 11/13/17 16:55 Urine RBC (Auto) > 182.0 /HPF (0.0-6.0) 11/13/17 16:55 U Epithel Cells (Auto) 7.0 /HPF (0-13.0) 11/13/17 16:55 Urine Bacteria (Auto) 3+ /HPF (Negative) 11/13/17 16:55 Urine Mucus Few /HPF 11/13/17 16:55 Urine Yeast (Budding) 3+ /HPF 11/13/17 16:55 Blood Type O POSITIVE 11/13/17 15:57 Antibody Screen Negative 11/13/17 15:57 Crossmatch See Detail 11/13/17 15:57
[2017-11-16] MEDS: APRESOLINE PO SCH (16:24)
[2017-11-16] MEDS ORDERED: MILK OF MAGNESIA PO PRN (21:02)
[2017-11-16] MEDS: COLACE PO SCH (21:42)
[2017-11-17] MEDS: PERCOCET 5/325 PO PRN ×2 (00:06→07:07)
[2017-11-17] MEDS: APRESOLINE PO SCH ×2 (00:06→08:41)
[2017-11-17 05:28] LABS: Hematocrit 27.1 % (30.3-42.9); Hemoglobin 8.9 gm/dl (10.1-14.3)
[2017-11-17] MEDS: ZESTRIL PO SCH (09:27)
[2017-11-17] MEDS: COLACE PO SCH (09:27)
[2017-11-17] MEDS: PROVERA PO SCH (09:28)
[2017-11-17] MEDS: PEPCID PO SCH (09:28)
[2017-11-17] MEDS: SODIUM CHLORIDE FLUSH SYRINGE 10 ML IV SCH (09:29)
[2017-11-17] MEDS: ROCEPHIN/NS 1 GM/50 ML 1 GM/50 ML BAG IV SCH (10:02)
--- NOTE | 2017-11-17 10:51 | Discharge Summary ---
Providers - Providers Date of Admission: 11/13/17 23:14 Date of discharge: 11/17/17 Attending physician: KRISTAL REYES MD 11/13/17 23:14 Consult to Physician [CONS] Routine Comment: Consulting Provider: GEOVANNA CUENCA Physician Instructions: Reason For Exam: vag bleed Primary care physician: MANAGER GAME Hospitalization Reason for admission: Anemia, vaginal bleeding Condition: Critical Disposition: DC-01 TO HOME OR SELFCARE Time spent for discharge: 32 minutes - Discharge Diagnoses (1) Menopausal menorrhagia Status: Acute (2) Anemia due to acute blood loss Status: Acute (3) GOMEZ (dyspnea on exertion) Status: Acute (4) SOB (shortness of breath) Status: Acute (5) UTI (urinary tract infection) Status: Acute Qualifiers: Urinary tract infection type: acute cystitis Hematuria presence: with hematuria Qualified Code(s): N30.01 - Acute cystitis with hematuria Core Measure Documentation - Palliative Care Palliative Care/ Comfort Measures: Not Applicable - Core Measures Any of the following diagnoses?: none Exam - Physical Exam Narrative exam: Not in cardiopulmonary distress. The patient is obese. Vital signs as documented. Head exam is unremarkable. No scleral icterus . Neck is without jugular venous distension, thyromegaly, or carotid bruits. Lungs are clear to auscultation. Cardiac exam reveals regular rate and Rhythm. First and second heart sounds normal. No murmurs, rubs or gallops. Abdominal exam reveals normal bowel sounds, no masses, no organomegaly and no aortic enlargement. Extremities are nonedematous and both femoral and pedal pulses are normal. FOOD STYLIST: Alert and oriented 3. No focal weakness. - Constitutional Vitals: Temp Pulse Resp BP Pulse Ox 98.7 F 68 20 151/69 98 11/17/17 08:31 11/17/17 09:27 11/17/17 08:31 11/17/17 09:27 11/17/17 08:31 Plan Activity: no restrictions Weight Bearing Status: Full Weight Bearing Diet: low salt Follow up with: MIS CANTU MD [Primary Care Provider] - 3-5 Days GEOVANNA CUENCA MD [Staff Physician] - 7 Days Prescriptions: Ferrous Sulfate [Iron] 325 mg PO BID #60 tablet hydrALAZINE [Apresoline TAB] 100 mg PO Q8H #90 tablet medroxyPROGESTERone ACETATE [Provera] 10 mg PO QDAY #7 tablet oxyCODONE /ACETAMINOPHEN [Percocet 5/325 mg] 2 tab PO Q6H PRN #12 tablet PRN Reason: Pain, Moderate (4-6)
--- NOTE | 2017-11-17 11:01 | Progress Note ---
Assessment and Plan - Patient Problems (1) Menorrhagia with irregular cycle Onset Date: 11/14/17 Current Visit: Yes Status: Chronic Plan to address problem: A: Menorrhagia - most likely due to uterine fibroids Symptomatic anemia P: Discussed pelvic u/s results with pt - including an enlarged uterus 13.2 x 8.5 x 9.3cm with a 6.1 x 5.6 x 6.1cm central fibroids and an enlarged left ovarian mass She can follow up with me in the office for further evaluation - including a Pap, endometrial biopsy and possible Hysterectomy. Will also obtain CA125 - results can be followed up in the office also May go home today. (2) Anemia due to acute blood loss Onset Date: 11/14/17 Current Visit: Yes Status: Chronic Subjective - Subjective Date of service: 11/17/17 Principal diagnosis: Symptomatic anemia ; Uterine fibroids; Menorrhagia Interval history: Pt states she is feeling much better, bleeding improved. Patient reports: appetite normal, voiding normally, pain well controlled, ambulating normally Objective - Vital Signs Latest vital signs: Vital Signs Temp Pulse Resp Resp BP BP Pulse Ox 11/17/17 09:27 68 151/69 11/17/17 08:54 65 11/17/17 08:41 60 179/78 11/17/17 08:31 98.7 F 60 20 179/78 98 11/17/17 07:07 20 11/17/17 04:47 98.3 F 18 139/68 11/17/17 04:45 97 11/17/17 01:06 20 11/17/17 00:15 20 11/17/17 00:06 57 L 18 145/68 11/16/17 23:50 98.9 F 59 L 18 145/68 100 11/16/17 20:31 67 11/16/17 20:00 18 98 11/16/17 19:47 98.8 F 63 20 164/77 99 11/16/17 16:46 98.4 F 62 21 173/86 98 11/16/17 16:24 62 173/86 11/16/17 12:21 98.4 F 60 18 178/86 99 Intake and Output 11/16/17 11/17/17 11/17/17 22:59 06:59 14:59 Intake Total 610 150 600 Output Total 400 Balance 210 150 600 Intake: Oral 610 150 600 Output: Urine 400 Void 400 Other: Total, Intake Amount 360 150 120 Total, Output Amount 400 Voiding Method Toilet Toilet # Voids 1 Void 3 1 1 # Bowel Movements 0 Weight 101.4 kg Patient Weight 11/18/17 06:59 Weight 101.4 kg - Exam Abdomen: Present: mass - Labs Labs: Abnormal lab results 11/17/17 Range/Units 04:58 Hgb 8.9 L (10.1-14.3) gm/dl Hct 27.1 L (30.3-42.9) %
[2017-11-17 11:36] VITALS: BP 175/87
== END 2017-11-17 12:26 | disposition home or self-care (01) | DRG 760 ==
LOC: ED 13:43 → 4A 23:14
PROVIDERS: ADMIT Internal Medicine; ATTEND Internal Medicine
PROC: 30233N1 Transfusion of Nonautologous Red Blood Cells into Peripheral Vein, Percutaneous Approach (ICD-10-PCS; principal; 2017-11-13)
DX: D25.9 Leiomyoma of uterus, unspecified (principal); D62 Acute posthemorrhagic anemia; N30.01 Acute cystitis with hematuria; N93.9 Abnormal uterine and vaginal bleeding, unspecified; R07.9 Chest pain, unspecified; F17.210 Nicotine dependence, cigarettes, uncomplicated; F41.9 Anxiety disorder, unspecified; E66.9 Obesity, unspecified; E11.9 Type 2 diabetes mellitus without complications; I10 Essential (primary) hypertension; Z88.5 Allergy status to narcotic agent; Z90.89 Acquired absence of other organs; Z82.49 Family history of ischemic heart disease and other diseases of the circulatory system; Z68.38 Body mass index [BMI] 38.0-38.9, adult; Z79.899 Other long term (current) drug therapy
CPT/HCPCS: 36415; 76830; 76856; 80048; 81001; 82550; 82553; 82962; 83880; 84484; 85007; 85014; 85018; 85025; 86304; 86850; 86900; 86901; 86920; 93005; 93010; 96365; 96375; 96376; J0360; J0696; J1170; J2405; J7040; P9016

== ENCOUNTER 2020-05-23 15:37 | Inpatient (IN) | payer OTHER ==
--- NOTE | 2020-05-23 16:17 | Event Note ---
ED Screening Note Date of service: 05/23/20 Time: 16:16 ED Screening Note: Patient complains of shortness of breath x4 days Admits to leg swelling and pain for the past 4 days also History of hypertension Denies chest pain This initial assessment/diagnostic orders/clinical plan/treatment(s) is/are subject to change based on patients health status, clinical progression and re- assessment by fellow clinical providers in the ED. Further treatment and workup at subsequent clinical providers discretion. Patient/guardian urged not to elope from the ED as their condition may be serious if not clinically assessed and managed. Initial orders include: Labs EKG Chest x-ray
[2020-05-23 16:52] LABS: Mean Corpuscular HGB Conc 30 % (30-34); Platelet Count 297 K/mm3 (140-440)
[2020-05-23 16:55] LABS: Mean Corpuscular Volume 59 fl (79-97); Red Cell Distribution Width 21.9 % (13.2-15.2)
[2020-05-23 17:01] LABS: Hematocrit 15.3 % (30.3-42.9); Hemoglobin 4.6 gm/dl (10.1-14.3)
[2020-05-23 17:07] LABS: Alanine Aminotransferase 13 units/L (7-56); Albumin 3.8 g/dL (3.9-5); Blood Urea Nitrogen 11 mg/dL (7-17); Calcium 9.2 mg/dL (8.4-10.2); Hemolysis Index 0
--- NOTE | 2020-05-23 17:08 | Vascular Lab Report ---
DUPLEX DOPPLER LOWER EXTREMITY VEINS, BILATERAL INDICATION / CLINICAL INFORMATION: Leg pain and swelling. TECHNIQUE: Duplex doppler imaging was performed through the veins of both lower extremities using venous carrington dave and other maneuvers. COMPARISON: None available. FINDINGS: RIGHT COMMON FEMORAL VEIN: Negative. RIGHT FEMORAL VEIN: Negative. RIGHT POPLITEAL VEIN: Negative. RIGHT CALF VEINS: Negative. LEFT COMMON FEMORAL VEIN: Negative. LEFT FEMORAL VEIN: Negative. LEFT POPLITEAL VEIN: Negative. LEFT CALF VEINS: Negative. ADDITIONAL FINDINGS: None. IMPRESSION: 1. No sonographic evidence for DVT in either lower extremity. Signer Name: Jony Heaton MD Signed: 05/23/2020 5:04 PM Workstation Name: [id number]
[2020-05-23 17:10] LABS: BUN/Creatinine Ratio 16
--- NOTE | 2020-05-23 17:32 | XRay Report ---
XR chest routine 2V INDICATION / CLINICAL INFORMATION: shortness of breath. COMPARISON: None available. FINDINGS: SUPPORT DEVICES: None. HEART /PULMONARY VASCULATURE: There is cardiac enlargement and mild pulmonary vasculature congestion. LUNGS / PLEURA: No significant pulmonary or pleural abnormality. No pneumothorax. ADDITIONAL FINDINGS: No significant additional findings. IMPRESSION: Cardiac enlargement with congestion of the pulmonary vasculature, suggestive of mild CHF. Signer Name: Luciano Weston MD Signed: 05/23/2020 5:27 PM Workstation Name: [id number]
[2020-05-23 17:59] LABS: Anisocytosis 1+; Hypochromasia 1+; Total Cells Counted 100
[2020-05-23] MEDS ORDERED: SODIUM CHLORIDE 0.9% 500 ML 500 ML IV ONE (18:09)
--- NOTE | 2020-05-23 18:12 | Emergency Department Report ---
ED Shortness of Breath HPI - General Chief Complaint: Dyspnea/Respdistress Stated Complaint: SOB/TATIANA LEGS/FEET SWOLLEN PAIN IN STOMACH Time Seen by Provider: 05/23/20 16:15 Source: patient Mode of arrival: Ambulatory Limitations: No Limitations - History of Present Illness Initial Comments: 60-year-old female with a past medical history of obesity, diabetes, hypertension, peptic ulcer disease, menorrhagia secondary to fibroids, and anxiety presents to the hospital complaints of shortness of breath, lightheadedness, and lower extremity edema for the last 4 days. Patient denies a previous history of CHF. Positive orthopnea, PND, and dyspnea exertion. For last 4 months patient has been experiencing epigastric burning pain radiating to the back with intermittent nausea and vomiting. Patient states the vomitus was "dark". Patient also having intermittent dark stools. Positive history of peptic ulcer disease diagnosed by endoscopy greater 5 years ago and patient was also treated for H. pylori. Patient is not currently taking any H2 blockers or PPIs. She uses Lucina-Shelburn as needed for pain denies aspirin, ibuprofen, or NSAID use. Patient has a history of blood transfusion due to menorrhagia secondary to fibroids in the past. Patient states she continues to have intermittent heavy vaginal bleeding with last episode 2 months ago. Patient has been unable to follow-up for additional work-up secondary to lack of insurance states she recently had her insurance reactivated - Related Data Home Medications Medication Instructions Recorded Confirmed Last Taken hydroCHLOROthiazide 75 mg PO BID 05/23/20 05/23/20 Unknown [Hydrochlorothiazide] Allergies Allergy/AdvReac Type Severity Reaction Status Date / Time morphine Allergy Unknown Verified 11/13/17 15:45 ED Review of Systems ROS: Stated complaint: SOB/TATIANA LEGS/FEET SWOLLEN PAIN IN STOMACH Other details as noted in HPI Comment: All other systems reviewed and negative ED Past Medical Hx - Past Medical History Hx Hypertension: Yes Hx Diabetes: Yes Hx Psychiatric Treatment: Yes (anxiety) Additional medical history: fibroids - Surgical History Additional Surgical History: tonsilectomy/ myomectomy - Social History Smoking Status: Current Every Day Smoker Substance Use Type: None - Medications Home Medications: Home Medications Medication Instructions Recorded Confirmed Last Taken Type hydroCHLOROthiazide 75 mg PO BID 05/23/20 05/23/20 Unknown History [Hydrochlorothiazide] ED Physical Exam - General Limitations: No Limitations - Other Other exam information: General: No acute distress Head: Atraumatic Eyes: normal appearance ENT: Moist mucous membranes Neck: Normal appearance, no midline tenderness Chest: Clear to auscultation bilaterally, tachypneic with mild activity, orthopnea noted CV: Regular rate and rhythm Abdomen: Soft, normal bowel sounds, epigastric tenderness, nondistended, no rebound or guarding Rectal: Guaiac positive dark brown stool, no gross blood Back: Normal inspection Extremity: Bilateral 2+ pitting lower extremity edema, no leg asymmetry or isolated calf tenderness, full range of motion Neuro: Alert O x 3, no facial asymmetry, speech clear, no gross motor sensory deficit Psych: Appropriate behavior Skin: No rash ED Course Vital Signs 05/23/20 05/23/20 05/23/20 16:10 17:41 17:42 Temperature 98.4 F Pulse Rate 89 106 H Respiratory 20 18 18 Rate Blood Pressure 188/100 Blood Pressure 188/89 [Right] O2 Sat by Pulse 100 100 100 Oximetry 05/23/20 05/23/20 05/23/20 17:45 17:46 18:01 Temperature Pulse Rate 91 H 106 H Respiratory 15 17 Rate Blood Pressure 199/104 Blood Pressure [Right] O2 Sat by Pulse 100 100 Oximetry 05/23/20 05/23/20 18:15 18:31 Temperature Pulse Rate 93 H 70 Respiratory 16 20 Rate Blood Pressure 194/92 Blood Pressure [Right] O2 Sat by Pulse 100 100 Oximetry - Consultations Consultation #1: 05/23/20 18:[address] Aly Dash, GI who agrees with Protonix. Will consult during admission 05/23/20 19:34 case d/w Dr Loomis/cardiology, will consult ED Medical Decision Making - Lab Data Result diagrams: 05/23/20 16:25 05/23/20 16:25 Lab Results 05/23/20 05/23/20 Range/Units 16:25 16:25 WBC 7.7 (4.5-11.0) K/mm3 RBC 2.60 L (3.65-5.03) M/mm3 Hgb 4.6 L* (10.1-14.3) gm/dl Hct 15.3 L* (30.3-42.9) % MCV 59 L (79-97) fl MCH 18 L (28-32) pg MCHC 30 (30-34) % RDW 21.9 H (13.2-15.2) % Plt Count 297 (140-440) K/mm3 Add Manual Diff Complete Total Counted 100 Seg Neuts % (Manual) 56.0 (40.0-70.0) % Lymphocytes % (Manual) 31.0 (13.4-35.0) % Monocytes % (Manual) 9.0 H (0.0-7.3) % Eosinophils % (Manual) 2.0 (0.0-4.3) % Basophils % (Manual) 2.0 H (0.0-1.8) % Nucleated RBC % Not Reportable Seg Neutrophils # Man 4.3 (1.8-7.7) K/mm3 Band Neutrophils # 0.0 K/mm3 Lymphocytes # (Manual) 2.4 (1.2-5.4) K/mm3 Abs React Lymphs (Man) 0.0 K/mm3 Monocytes # (Manual) 0.7 (0.0-0.8) K/mm3 Eosinophils # (Manual) 0.2 (0.0-0.4) K/mm3 Basophils # (Manual) 0.2 H (0.0-0.1) K/mm3 Metamyelocytes # 0.0 K/mm3 Myelocytes # 0.0 K/mm3 Promyelocytes # 0.0 K/mm3 Blast Cells # 0.0 K/mm3 WBC Morphology Not Reportable Hypersegmented Neuts Not Reportable Hyposegmented Neuts Not Reportable Hypogranular Neuts Not Reportable Smudge Cells Not Reportable Toxic Granulation Not Reportable Toxic Vacuolation Not Reportable Dohle Bodies Not Reportable Pelger-Huet Anomaly Not Reportable Sacha Rods Not Reportable Platelet Estimate Not Reportable Clumped Platelets Not Reportable Plt Clumps, EDTA Not Reportable Large Platelets Not Reportable Giant Platelets Not Reportable Platelet Satelliting Not Reportable Plt Morphology Comment Not Reportable RBC Morphology Not Reportable Dimorphic RBCs Not Reportable Polychromasia Not Reportable Hypochromasia 1+ Poikilocytosis Not Reportable Anisocytosis 1+ Microcytosis 1+ Macrocytosis Not Reportable Spherocytes Not Reportable Pappenheimer Bodies Not Reportable Sickle Cells Not Reportable Target Cells Not Reportable Tear Drop Cells Not Reportable Ovalocytes Not Reportable Helmet Cells Not Reportable Morales-Longcreek Bodies Not Reportable Sherwood Rings Not Reportable Silvana Cells Not Reportable Bite Cells Not Reportable Crenated Cell Not Reportable Elliptocytes Not Reportable Acanthocytes (Spur) Not Reportable Rouleaux Not Reportable Hemoglobin C Crystals Not Reportable Schistocytes Not Reportable Malaria parasites Not Reportable Franklin Bodies Not Reportable Hem Pathologist Commnt No Sodium 138 (137-145) mmol/L Potassium 3.5 L (3.6-5.0) mmol/L Chloride 102.0 (98-107) mmol/L Carbon Dioxide 25 (22-30) mmol/L Anion Gap 15 mmol/L BUN 11 (7-17) mg/dL Creatinine 0.7 (0.6-1.2) mg/dL Estimated GFR > 60 ml/min BUN/Creatinine Ratio 16 % Glucose 125 H (65-100) mg/dL Calcium 9.2 (8.4-10.2) mg/dL Total Bilirubin 0.20 (0.1-1.2) mg/dL AST 18 (5-40) units/L ALT 13 (7-56) units/L Alkaline Phosphatase 56 (35-129) units/L Troponin T < 0.010 (0.00-0.029) ng/mL NT-Pro-B Natriuret Pep 1509 H (0-900) pg/mL Total Protein 6.5 (6.3-8.2) g/dL Albumin 3.8 L (3.9-5) g/dL Albumin/Globulin Ratio 1.4 % - EKG Data -: EKG Interpreted by Me (PVCs, LVH, no STEMI) EKG shows normal: sinus rhythm Rate: normal (81) - Radiology Data Radiology results: report reviewed XR chest routine 2V INDICATION / CLINICAL INFORMATION: shortness of breath. COMPARISON: None available. FINDINGS: SUPPORT DEVICES: None. HEART /PULMONARY VASCULATURE: There is cardiac enlargement and mild pulmonary vasculature congestion. LUNGS / PLEURA: No significant pulmonary or pleural abnormality. No pneumothorax. ADDITIONAL FINDINGS: No significant additional findings. IMPRESSION: Cardiac enlargement with congestion of the pulmonary vasculature, suggestive of mild CHF. DUPLEX DOPPLER LOWER EXTREMITY VEINS, BILATERAL INDICATION / CLINICAL INFORMATION: Leg pain and swelling. TECHNIQUE: Duplex doppler imaging was performed through the veins of both lower extremities using venous compression and other maneuvers. COMPARISON: None available. FINDINGS: RIGHT COMMON FEMORAL VEIN: Negative. RIGHT FEMORAL VEIN: Negative. RIGHT POPLITEAL VEIN: Negative. RIGHT CALF VEINS: Negative. LEFT COMMON FEMORAL VEIN: Negative. LEFT FEMORAL VEIN: Negative. LEFT POPLITEAL VEIN: Negative. LEFT CALF VEINS: Negative. ADDITIONAL FINDINGS: None. IMPRESSION: 1. No sonographic evidence for DVT in either lower extremity. - Medical Decision Making 60-year-old female presents to the hospital with dyspnea on exertion likely secondary to severe anemia with new onset heart failure possibly due to high flow/severe anemia. Guaiac positive stools without signs of active GI hemorrhage. 1 unit of PRBC initiated, Lasix, and p.o. potassium. Case discussed and Consult ordered with GI and prop cutter. Critical Care Time: Yes Critical care time in (mins) excluding proc time.: 35 Critical care attestation.: If time is entered above; I have spent that time in minutes in the direct care o f this critically ill patient, excluding procedure time. ED Disposition Clinical Impression: Symptomatic anemia, Epigastric pain, New onset of congestive heart failure, History of peptic ulcer disease, Guaiac positive stools, Post-menopausal bleeding, Dyspnea, Hypokalemia, HTN (hypertension) Disposition: OP ADMIT IP TO THIS HOSP Is pt being admited?: Yes Condition: Stable Time of Disposition: 18:11 (Dr Ivey/hosp)
[2020-05-23] MEDS ORDERED: POTASSIUM CHLORIDE ER 20 MEQ TAB PO ONE (18:24)
[2020-05-23] MEDS ORDERED: FUROSEMIDE 40 MG/4 ML INJ IV ONE (18:24)
[2020-05-23] MEDS ORDERED: PANTOPRAZOLE 40 MG INJ IV ONE (18:29)
--- NOTE | 2020-05-23 18:48 | History and Physical Report ---
History of Present Illness Chief complaint: I feel weak, I am short of breath, and I am swollen History of present illness: 60 YO Female with HTN, DM, KAREN, Uterine Fibroids complicated by Dysfunctional Uterine Bleeding S/P Myomectomy presents to ED for evaluation. Patient reports "I feel weak, I am short of breath, I am swollen, and I have been bleeding. Patient states that she has experienced dizziness, lightheadedness, weakness, shortness of breath, decreased exercise tolerance, orthopnea, paroxysmal nocturnal dyspnea, dyspnea on exertion, dyspnea at rest over the past 1 week with worsening symptoms over the past 3 days. Patient also reports intermittent nausea, and 3 episodes of vomiting over the past 3 weeks. Patient also reports having intermittent dark stools over the past 1 month. Patient is unable to quantify how many dark stools she experienced. Patient also reports several episodes of vaginal bleeding over the past 2 months. Patient has been lost to outpatient medical follow-up due to lack of insurance. Patient transported to [facility] via private vehicle for further care and evaluation of the aforementioned symptoms. Patient seen and evaluated in the emergency department. All lab and imaging studies reviewed. Patient found to be Hemoccult positive. Patient found to have symptoms consistent with CHF decompensation, symptomatic anemia, accelerated hypertension, GI bleeding. As well as vaginal bleeding. Patient admitted to telemetry due to increased risk of worsening symptoms. Patient initiated on CHF protocol. Cardiology team consulted in ED. Patient also initiated on packed red blood cell transfusion with concomitant diuretic therapy after transfusion of packed red blood cells. Patient denies fever, chills, chest pain, palpitations, productive cough, skin rash, recent ill contacts, or known exposure to COVID-19. Prior admission on 11/13/2017 reviewed. All medication listed at time of admission has been reconciled. Advanced care planning conducted in ED. Past History Past Medical History: diabetes, hypertension, other (See HPI) Past Surgical History: tonsillectomy, Other (Myomectomy) Social history: single. denies: smoking, alcohol abuse, prescription drug abuse Family history: diabetes, hypertension Medications and Allergies Allergies Allergy/AdvReac Type Severity Reaction Status Date / Time morphine Allergy Unknown Verified 11/13/17 15:45 Home Medications Medication Instructions Recorded Confirmed Last Taken Type hydroCHLOROthiazide 75 mg PO BID 05/23/20 05/23/20 Unknown History [Hydrochlorothiazide] Review of Systems Constitutional: weakness, malaise, no weight loss, no weight gain, no fever, no chills Ears, nose, mouth and throat: no ear pain, no ear discharge, no tinnitis, no nose pain, no nasal congestion Breasts: no change in shape, no swelling, no mass Cardiovascular: orthopnea, shortness of breath, dyspnea on exertion, paroxysmal nocturnal dyspnea, high blood pressure, leg edema, decreased exercise tolerance, no chest pain, no palpitations, no rapid/irregular heart beat Respiratory: no cough, no cough with sputum, no excessive sputum, no hemoptysis Gastrointestinal: nausea, vomiting, melena, no diarrhea Genitourinary Female: other (Dysfunctional uterine bleeding), no pelvic pain, no flank pain Menstruation: postmenopausal Rectal: no pain, no incontinence, no bleeding Musculoskeletal: no neck stiffness, no neck pain, no shooting arm pain, no arm numbness/tingling, no low back pain Integumentary: no rash, no pruritis, no sores Neurological: no head injury, no transient paralysis, no weakness, no numbness, no seizures Psychiatric: no anxiety, no memory loss, no sleep disturbances, no insomnia, no change in libido, no suicidal ideation, no disorientation Endocrine: no cold intolerance, no polyphagia, no excessive thirst, no polydipsia, no nocturia, no excessive sweating, no flushing Hematologic/Lymphatic: no easy bruising, no easy bleeding, no lymphadenopathy Allergic/Immunologic: no urticaria, no allergic rhinitis, no wheezing, no persistent infections, no angioedema Exam - Constitutional Vitals: Temp Pulse Resp BP Pulse Ox 98.4 F 70 20 194/92 100 05/23/20 16:10 05/23/20 18:31 05/23/20 18:31 05/23/20 18:31 05/23/20 18:31 General appearance: Present: mild distress, obese - EENT Eyes: Present: PERRL, EOM intact (Conjunctival pallor) ENT: hearing intact, clear oral mucosa - Neck Neck: Present: supple, normal ROM - Respiratory Respiratory effort: normal Respiratory: bilateral: diminished, rales - Cardiovascular Rhythm: regular Heart Sounds: Present: S1 & S2. Absent: rub, click - Extremities Extremities: pulses symmetrical Extremity abnormal: edema Peripheral Pulses: within normal limits - Abdominal General gastrointestinal: Present: soft, non-tender, non-distended, normal bowel sounds Female genitourinary: Present: normal - Integumentary Integumentary: Present: clear, warm, dry - Musculoskeletal Musculoskeletal: gait normal, strength equal bilaterally - Psychiatric Psychiatric: appropriate mood/affect, intact judgment & insight - Neurologic Neurologic: CNII-XII intact, moves all extremities HEART Score - HEART Score Troponin: Troponin T < 0.010 ng/mL (0.00-0.029) 05/23/20 16:25 Results - Labs CBC & Chem 7: 05/23/20 16:25 05/23/20 16:25 Labs: Abnormal lab results 05/23/20 05/23/20 05/23/20 Range/Units 16:25 16:25 18:21 RBC 2.60 L (3.65-5.03) M/mm3 Hgb 4.6 L* (10.1-14.3) gm/dl Hct 15.3 L* (30.3-42.9) % MCV 59 L (79-97) fl MCH 18 L (28-32) pg RDW 21.9 H (13.2-15.2) % Monocytes % (Manual) 9.0 H (0.0-7.3) % Basophils % (Manual) 2.0 H (0.0-1.8) % Basophils # (Manual) 0.2 H (0.0-0.1) K/mm3 Potassium 3.5 L (3.6-5.0) mmol/L Glucose 125 H (65-100) mg/dL NT-Pro-B Natriuret Pep 1509 H (0-900) pg/mL Albumin 3.8 L (3.9-5) g/dL Crossmatch See Detail Assessment and Plan - Patient Problems (1) Congestive heart failure Status: Acute Qualifiers: Heart failure type: systolic Heart failure chronicity: acute Qualified Code(s): I50.21 - Acute systolic (congestive) heart failure Plan to address problem: CHF protocol: Strict I/O, monitor urine output every shift, daily weight, afterload reduction, echocardiogram, cardiology consulted in ED, diuresis, supplemental oxygen, pulse oximetry. BNP, thyroid panel, magnesium level (2) Dysfunctional uterine bleeding Status: Acute Plan to address problem: MAINTENANCE APPRENTICE service consulted in ED, supportive care. (3) GI bleed Status: Acute Plan to address problem: GI consulted in ED, Hemoccult, packed red blood cell transfusion, further care as per GI team. PPI therapy. (4) Symptomatic anemia Status: Acute Plan to address problem: CBC, packed red blood cell transfusion, supportive care. Iron replacement therapy. (5) Accelerated hypertension Status: Acute Plan to address problem: Monitor blood pressure every shift, continue medical management, IV hydralazine every 6 hours as needed for systolic blood pressure greater than or equal to 1 5 5 mmHg (6) Diabetes Status: Acute Plan to address problem: Consistent carbohydrate diet, Accu-Chek, insulin protocol, hypoglycemia protocol. (7) DVT prophylaxis Status: Acute Plan to address problem: SCD to bilateral lower extremities while in bed, hold anticoagulation for now due to bleeding (8) Advance care planning Status: Acute Plan to address problem: Disease education conducted, care plan discussed, diagnoses discussed, care plans discussed, patient is full code, patient knowledges understanding and agreement with care plan. +30 minutes.
[2020-05-23] MEDS ORDERED: ONDANSETRON 4 MG/2 ML INJ IV PRN (18:49)
[2020-05-23] MEDS ORDERED: SODIUM CHLORIDE 0.9% 500 ML 500 ML IV NR (19:02)
[2020-05-23] MEDS ORDERED: FUROSEMIDE 20 MG/2 ML INJ IV NR (19:04)
[2020-05-23 20:41] LABS: Free T4 (Free Thyroxine) 1.32 ng/dL (0.76-1.46)
--- NOTE | 2020-05-23 22:38 | Consultation ---
History of Present Illness Consult date: 05/23/20 Reason for consult: other (Anemia, history of postmenopausal bleeding and pelvic mass) History of present illness: This is a 60-year-old female 2 para 0 who presented to the emergency room stating "I feel weak, I am short of breath, I am swollen, and I have been bleeding. Patient states that she has experienced dizziness, lightheadedness, weakness, shortness of breath, decreased exercise tolerance, orthopnea, paroxysmal nocturnal dyspnea, dyspnea on exertion, dyspnea at rest over the past 1 week with worsening symptoms over the past 3 days. Patient also reports intermittent nausea, and 3 episodes of vomiting over the past 3 weeks. Patient also reports having intermittent dark stools over the past 1 month. She gives a history of postmenopausal bleeding. Patient states she had menorrhagia treated by myomectomy in 2007. Bleeding improved however became heavy again and she required uterine fibroid embolization in 2014. Patient states she had no bleeding until 2015 or 2016 when she started having sporadic irregular bleeding associated with clots. She was evaluated in this facility November 2017 during which she was noted to have a 6 cm enlarged left ovary with a 5 cm cyst as well as a 6 cm mid to lower uterine solid mass centrally. She was again evaluated in this facility July 2019 in which she had a CT scan that revealed an approximately 10 cm centrally located uterine mass. She was unable to follow-up for gynecologic evaluation due to lack of insurance. Today she denies vaginal bleeding. She states she noticed bleeding in March 2020 and bled for 1 day that was heavy April 28, 2020. Her evaluation in the ED revealed guaiac positive stool, hemoglobin of 4.6 and elevated blood pressures. This consultation was obtained to evaluate patient with history of postmenopausal bleeding and anemia. Past History Past Medical History: hypertension, diabetes, blood transfusion, GERD, other (Anxiety) Past Surgical History: tonsillectomy, D&C, myomectomy, other (Right breast biopsy with benign findings; uterine fibroid embolization) [employer] History: fibroids, other (Patient had her last mammogram 6 years ago that was normal. States her last Pap smear was approximately 2010 that was also normal). denies: abnormal PAP smear, cancer, chlamydia, gonorrhea, hepatitis B, hepatitis C, herpes, HIV, syphilis, trichomonas Family/Genetic History: cancer (Maternal aunt with breast cancer who also had 2 daughters with breast cancer) Social history: single, smoking. denies: alcohol abuse, prescription drug abuse, IV drug use Medications and Allergies Allergies Allergy/AdvReac Type Severity Reaction Status Date / Time morphine Allergy Unknown Verified 11/13/17 15:45 Home Medications Medication Instructions Recorded Confirmed Last Taken Type hydroCHLOROthiazide 75 mg PO BID 05/23/20 05/23/20 Unknown History [Hydrochlorothiazide] Active Meds: Active Medications Acetaminophen (Acetaminophen 325 Mg Tab) 650 mg PO Q4H PRN PRN Reason: Pain MILD(1-3)/Fever >100.5/MOYA Ferrous Sulfate (Ferrous Sulfate 325 Mg Tab) 325 mg PO BID VIVIENNE Hydralazine HCl (Hydralazine 20 Mg/1 Ml Inj) 10 mg IV Q6HR PRN PRN Reason: Hypertension Sodium Chloride (Nacl 0.9% 500 Ml) 500 mls @ 0 mls/hr IV ONCE NR Stop: 05/24/20 06:00 Miscellaneous Medication (Hydrochlorothiazide [Hydrochlorothiazide]) 75 mg PO BID VIVIENNE Ondansetron HCl (Ondansetron 4 Mg/2 Ml Inj) 4 mg IV Q8H PRN PRN Reason: Nausea And Vomiting Pantoprazole Sodium (Pantoprazole 40 Mg Inj) 40 mg IV BID VIVIENNE Sodium Chloride (Sodium Chloride 0.9% 10 Ml Flush Syringe) 10 ml IV BID VIVIENNE Sodium Chloride (Sodium Chloride 0.9% 10 Ml Flush Syringe) 10 ml IV PRN PRN PRN Reason: LINE FLUSH Review of Systems All systems: negative Respiratory: shortness of breath, dyspnea on exertion Gastrointestinal: abdominal pain, nausea, vomiting, constipation, melena - Vital Signs Vital signs: Vital Signs Temp Pulse Resp BP Pulse Ox 98.4 F 89 20 188/100 100 05/23/20 16:10 05/23/20 16:10 05/23/20 16:10 05/23/20 16:10 05/23/20 16:10 Temp Pulse Resp BP Pulse Ox 98.2 F 73 18 142/80 100 05/23/20 20:18 05/23/20 21:33 05/23/20 21:33 05/23/20 21:33 05/23/20 21:33 - Physical Exam Breasts: Positive: deferred Lungs: Positive: Normal air movement Abdomen: Positive: soft, other (Obese). Negative: distention, tenderness, guarding Genitourinary (Female): Positive: normal external genitalia, normal perenium Vulva: both: normal Cervix: Positive: other (Speculum exam was deferred because she is not bleeding at this time. Although no vaginal or cervical masses were palpated with bimanual exam.) Uterus: Positive: other (Difficult to palpate due to obesity.) Anus/Rectum: Positive: normal perianal skin, rectal mass (Firm that was noted on vaginal exam) Extremities: Positive: edema Results Result Diagrams: 05/23/20 16:25 05/23/20 16:25 Abnormal lab results 05/23/20 05/23/20 05/23/20 Range/Units 16:25 16:25 18:21 RBC 2.60 L (3.65-5.03) M/mm3 Hgb 4.6 L* (10.1-14.3) gm/dl Hct 15.3 L* (30.3-42.9) % MCV 59 L (79-97) fl MCH 18 L (28-32) pg RDW 21.9 H (13.2-15.2) % Monocytes % (Manual) 9.0 H (0.0-7.3) % Basophils % (Manual) 2.0 H (0.0-1.8) % Basophils # (Manual) 0.2 H (0.0-0.1) K/mm3 Potassium 3.5 L (3.6-5.0) mmol/L Glucose 125 H (65-100) mg/dL NT-Pro-B Natriuret Pep 1509 H (0-900) pg/mL Albumin 3.8 L (3.9-5) g/dL Crossmatch See Detail All other labs normal. Assessment and Plan - Patient Problems (1) Post-menopausal bleeding Current Visit: No Status: Chronic Plan to address problem: Patient will require sampling of the endometrium to evaluate for endometrial cancer as well as cervical cancer screening. Will consider hysteroscopy D&C if patient is taken to the OR for a gastroenterologic evaluation. Otherwise patient should follow-up in our office. We will follow with you. (2) Symptomatic anemia Current Visit: No Status: Chronic (3) Guaiac positive stools Current Visit: No Status: Acute (4) History of peptic ulcer disease Current Visit: No Status: Chronic (5) Epigastric pain Current Visit: No Status: Acute (6) Chest pain Current Visit: No Status: Acute Qualifiers: Chest pain type: unspecified Qualified Code(s): R07.9 - Chest pain, unspecified (7) Dyspnea Current Visit: No Status: Acute (8) Diabetes Current Visit: No Status: Acute (9) HTN (hypertension) Current Visit: No Status: Acute
[2020-05-23] MEDS: FERROUS SULFATE 325 MG TAB PO SCH (22:52)
[2020-05-23] MEDS: PANTOPRAZOLE 40 MG INJ IV SCH (22:52)
[2020-05-24] MEDS: ACETAMINOPHEN 325 MG TAB PO PRN ×3 (00:40→20:54)
[2020-05-24] MEDS: hydrALAZINE 20 MG/1 ML INJ IV PRN ×2 (01:06→07:37)
[2020-05-24] MEDS ORDERED: diphenhydrAMINE 50 MG/ML VIAL IV NR (08:05)
[2020-05-24 08:12] LABS: Blood Urea Nitrogen 7 mg/dL (7-17); Calcium 9.1 mg/dL (8.4-10.2); Hemolysis Index 1
[2020-05-24 08:13] LABS: BUN/Creatinine Ratio 14
--- NOTE | 2020-05-24 08:13 | Progress Note ---
Assessment and Plan Assessment and plan: --Dysfunctional uterine bleeding; Postmenopausal bleeding Management per [employer] Possible D&C and endometrial biopsy --Acute blood loss anemia; Severe anemia hemoglobin of 4.6 Received 2 units of PRBC, check H&H Transfuse additional 2 units today --Symptomatic severe anemia; Secondary to DUB/postmenopausal bleeding Received transfusion, additional transfusion as needed Treat underlying cause for [employer] --GI bleeding/severe anemia; Follow GI evaluation and recommendations IV Protonix --Congestive heart failure; Unknown ejection fraction Follow echocardiogram, Continue current management --Obesity; BMI 35.9 Advised weight reduction dietary modification exercise as tolerated When medically stable --Ongoing tobacco use; Smoking cessation counseling done Advised nicotine patch as needed Counseling smoking cessation risks and consequences Complications, encouraged to quit tobacco use Spent 17 minutes counseling the patient --DVT prophylaxis; SCDs No pharmacologic anticoagulation in view of severe anemia and bleeding Closely monitor patient and adjust management as needed Consults and recommendations noted and appreciated Plan of care reviewed with the patient and her nurse Consults and recommendations noted and appreciated 05/24/2020; severe anemia received 2 units of PRBC transfusion Third unit transfusing, closely monitor H&H Additional transfusion as needed Disposition per [employer] History Interval history: I have seen and examined the patient at the bedside Patient's chart and medications reviewed Patient feels slightly better received 2 units of PRBC Receiving third unit today Given GI evaluation recommendations noted and appreciated Vital signs noted Patient complains of generalized weakness Hospitalist Physical - Constitutional Vitals: Temp Pulse Resp BP Pulse Ox 98.2 F 81 14 193/108 88 05/24/20 07:28 05/24/20 07:28 05/24/20 07:28 05/24/20 07:28 05/24/20 07:28 General appearance: Present: mild distress, obese - EENT Eyes: Present: PERRL, EOM intact - Neck Neck: Present: supple, normal ROM - Respiratory Respiratory effort: normal Respiratory: bilateral: diminished, rhonchi, negative: rales, wheezing - Cardiovascular Rhythm: regular Heart Sounds: Present: S1 & S2 - Extremities Extremities: no ischemia, No edema - Abdominal General gastrointestinal: soft, non-tender, non-distended, normal bowel sounds - Integumentary Integumentary: Present: clear, warm - Psychiatric Psychiatric: appropriate mood/affect, cooperative - Neurologic Neurologic: CNII-XII intact, moves all extremities HEART Score - HEART Score Troponin: Troponin T < 0.010 ng/mL (0.00-0.029) 05/23/20 16:25 Results - Labs CBC & Chem 7: 05/24/20 07:31 05/24/20 07:31 Labs: Laboratory Last Values WBC 7.7 K/mm3 (4.5-11.0) 05/23/20 16:25 RBC 2.60 M/mm3 (3.65-5.03) L 05/23/20 16:25 Hgb 4.6 gm/dl (10.1-14.3) L* 05/23/20 16:25 Hct 15.3 % (30.3-42.9) L* 05/23/20 16:25 MCV 59 fl (79-97) L 05/23/20 16:25 MCH 18 pg (28-32) L 05/23/20 16:25 MCHC 30 % (30-34) 05/23/20 16:25 RDW 21.9 % (13.2-15.2) H 05/23/20 16:25 Plt Count 297 K/mm3 (140-440) 05/23/20 16:25 Add Manual Diff Complete 05/23/20 16:25 Total Counted 100 05/23/20 16:25 Seg Neuts % (Manual) 56.0 % (40.0-70.0) 05/23/20 16:25 Lymphocytes % (Manual) 31.0 % (13.4-35.0) 05/23/20 16:25 Monocytes % (Manual) 9.0 % (0.0-7.3) H 05/23/20 16:25 Eosinophils % (Manual) 2.0 % (0.0-4.3) 05/23/20 16:25 Basophils % (Manual) 2.0 % (0.0-1.8) H 05/23/20 16:25 Nucleated RBC % Not Reportable 05/23/20 16:25 Seg Neutrophils # Man 4.3 K/mm3 (1.8-7.7) 05/23/20 16:25 Band Neutrophils # 0.0 K/mm3 05/23/20 16:25 Lymphocytes # (Manual) 2.4 K/mm3 (1.2-5.4) 05/23/20 16:25 Abs React Lymphs (Man) 0.0 K/mm3 05/23/20 16:25 Monocytes # (Manual) 0.7 K/mm3 (0.0-0.8) 05/23/20 16:25 Eosinophils # (Manual) 0.2 K/mm3 (0.0-0.4) 05/23/20 16:25 Basophils # (Manual) 0.2 K/mm3 (0.0-0.1) H 05/23/20 16:25 Metamyelocytes # 0.0 K/mm3 05/23/20 16:25 Myelocytes # 0.0 K/mm3 05/23/20 16:25 Promyelocytes # 0.0 K/mm3 05/23/20 16:25 Blast Cells # 0.0 K/mm3 05/23/20 16:25 WBC Morphology Not Reportable 05/23/20 16:25 Hypersegmented Neuts Not Reportable 05/23/20 16:25 Hyposegmented Neuts Not Reportable 05/23/20 16:25 Hypogranular Neuts Not Reportable 05/23/20 16:25 Smudge Cells Not Reportable 05/23/20 16:25 Toxic Granulation Not Reportable 05/23/20 16:25 Toxic Vacuolation Not Reportable 05/23/20 16:25 Dohle Bodies Not Reportable 05/23/20 16:25 Pelger-Huet Anomaly Not Reportable 05/23/20 16:25 Sacha Rods Not Reportable 05/23/20 16:25 Platelet Estimate Not Reportable 05/23/20 16:25 Clumped Platelets Not Reportable 05/23/20 16:25 Plt Clumps, EDTA Not Reportable 05/23/20 16:25 Large Platelets Not Reportable 05/23/20 16:25 Giant Platelets Not Reportable 05/23/20 16:25 Platelet Satelliting Not Reportable 05/23/20 16:25 Plt Morphology Comment Not Reportable 05/23/20 16:25 RBC Morphology Not Reportable 05/23/20 16:25 Dimorphic RBCs Not Reportable 05/23/20 16:25 Polychromasia Not Reportable 05/23/20 16:25 Hypochromasia 1+ 05/23/20 16:25 Poikilocytosis Not Reportable 05/23/20 16:25 Anisocytosis 1+ 05/23/20 16:25 Microcytosis 1+ 05/23/20 16:25 Macrocytosis Not Reportable 05/23/20 16:25 Spherocytes Not Reportable 05/23/20 16:25 Pappenheimer Bodies Not Reportable 05/23/20 16:25 Sickle Cells Not Reportable 05/23/20 16:25 Target Cells Not Reportable 05/23/20 16:25 Tear Drop Cells Not Reportable 05/23/20 16:25 Ovalocytes Not Reportable 05/23/20 16:25 Helmet Cells Not Reportable 05/23/20 16:25 Morales-Hixton Bodies Not Reportable 05/23/20 16:25 [place] Rings Not Reportable 05/23/20 16:25 Superior Cells Not Reportable 05/23/20 16:25 Bite Cells Not Reportable 05/23/20 16:25 Crenated Cell Not Reportable 05/23/20 16:25 Elliptocytes Not Reportable 05/23/20 16:25 Acanthocytes (Spur) Not Reportable 05/23/20 16:25 Rouleaux Not Reportable 05/23/20 16:25 Hemoglobin C Crystals Not Reportable 05/23/20 16:25 Schistocytes Not Reportable 05/23/20 16:25 Malaria parasites Not Reportable 05/23/20 16:25 [place] Bodies Not Reportable 05/23/20 16:25 Hem Pathologist Commnt No 05/23/20 16:25 Sodium 138 mmol/L (137-145) 05/23/20 16:25 Potassium 3.5 mmol/L (3.6-5.0) L 05/23/20 16:25 Chloride 102.0 mmol/L (98-107) 05/23/20 16:25 Carbon Dioxide 25 mmol/L (22-30) 05/23/20 16:25 Anion Gap 15 mmol/L 05/23/20 16:25 BUN 11 mg/dL (7-17) 05/23/20 16:25 Creatinine 0.7 mg/dL (0.6-1.2) 05/23/20 16:25 Estimated GFR > 60 ml/min 05/23/20 16:25 BUN/Creatinine Ratio 16 % 05/23/20 16:25 Glucose 125 mg/dL (65-100) H 05/23/20 16:25 Calcium 9.2 mg/dL (8.4-10.2) 05/23/20 16:25 Magnesium 2.00 mg/dL (1.7-2.3) 05/23/20 19:57 Total Bilirubin 0.20 mg/dL (0.1-1.2) 05/23/20 16:25 AST 18 units/L (5-40) 05/23/20 16:25 ALT 13 units/L (7-56) 05/23/20 16:25 Alkaline Phosphatase 56 units/L (35-129) 05/23/20 16:25 Troponin T < 0.010 ng/mL (0.00-0.029) 05/23/20 16:25 NT-Pro-B Natriuret Pep 1509 pg/mL (0-900) H 05/23/20 16:25 Total Protein 6.5 g/dL (6.3-8.2) 05/23/20 16:25 Albumin 3.8 g/dL (3.9-5) L 05/23/20 16:25 Albumin/Globulin Ratio 1.4 % 05/23/20 16:25 TSH 1.390 mlU/mL (0.270-4.200) 05/23/20 19:57 Free T4 1.32 ng/dL (0.76-1.46) 05/23/20 19:57 Blood Type O POSITIVE 05/23/20 18:21 Antibody Screen Negative 05/23/20 18:21 Crossmatch See Detail 05/23/20 18:21 Microbiology: Microbiology 05/23/20 16:06 Stool Stool Occult Blood (DAMIAN) - Final Smith/IV: Voiding Method Toilet Active Medications - Current Medications Current Medications: Generic Name Dose Route Start Last Admin Trade Name Freq PRN Reason Stop Dose Admin Acetaminophen 650 mg 05/23/20 18:49 05/24/20 07:37 Acetaminophen 325 Mg Tab PO 650 mg Q4H PRN Administration Pain MILD(1-3)/Fever >100.5/MOYA Diphenhydramine HCl 25 mg 05/24/20 08:05 Diphenhydramine 50 Mg/Ml Vial IV 05/24/20 08:06 ONCE ONE Ferrous Sulfate 325 mg 05/23/20 22:00 05/23/20 22:52 Ferrous Sulfate 325 Mg Tab PO 325 mg BID VIVIENNE Administration Hydralazine HCl 10 mg 03/23/21 19:05 05/24/20 07:37 Hydralazine 20 Mg/1 Ml Inj IV 10 mg Q6HR PRN Administration Hypertension Miscellaneous Medication 75 mg 05/23/20 22:00 Hydrochlorothiazide [Hydrochlorothiazide] PO BID VIVIENNE Ondansetron HCl 4 mg 05/23/20 18:49 Ondansetron 4 Mg/2 Ml Inj IV Q8H PRN Nausea And Vomiting Pantoprazole Sodium 40 mg 05/23/20 22:00 05/23/20 22:52 Pantoprazole 40 Mg Inj IV 40 mg BID VIVIENNE Administration Sodium Chloride 10 ml 05/23/20 22:00 05/23/20 22:52 Sodium Chloride 0.9% 10 Ml Flush Syringe IV 10 ml BID VIVIENNE Administration Sodium Chloride 10 ml 05/23/20 18:49 05/24/20 00:29 Sodium Chloride 0.9% 10 Ml Flush Syringe IV 10 ml PRN PRN Administration LINE FLUSH
[2020-05-24] MEDS ORDERED: FUROSEMIDE 20 MG/2 ML INJ IV NR (08:18)
[2020-05-24 08:44] LABS: Hematocrit 21.9 % (30.3-42.9); Hemoglobin 6.6 gm/dl (10.1-14.3); Mean Corpuscular HGB Conc 30 % (30-34); Platelet Count 256 K/mm3 (140-440); Red Blood Count 3.36 M/mm3 (3.65-5.03)
[2020-05-24 08:46] LABS: Mean Corpuscular Volume 65 fl (79-97); Red Cell Distribution Width 26.8 % (13.2-15.2)
[2020-05-24 09:35] LABS: % Iron Saturation 7.56 %
--- NOTE | 2020-05-24 10:20 | Gastroenterology Consultation ---
History of Present Illness - Reason for Consult Consult date: 05/24/20 Symptomatic Anemia Requesting physician: REYES FOX - History of Present Illness The patient is a 60 yo female admitted with severe symptomatic anemia (hct 15, SOB). She has a long hx of recurrent post-menopause bleeding. However, she also is FOBT (+) and has never had an EGD or colonoscopy. She denies severe abdominal pain, hx of PUD, irregular bowels (constipation with iron), N/V, weigh t loss, or loss of appetite. She has no family hx of gastric or colon cancer, but an aunt and 2 cousins had breast cancer. She denies a hx of cardiac disease or CHF. Past History Past Medical History: diabetes, hypertension, other (See HPI) Past Surgical History: tonsillectomy, Other (Myomectomy) Social history: single, smoking. denies: alcohol abuse, prescription drug abuse, IV drug use Family history: diabetes, hypertension Medications and Allergies Allergies Allergy/AdvReac Type Severity Reaction Status Date / Time morphine Allergy Unknown Verified 11/13/17 15:45 Home Medications Medication Instructions Recorded Confirmed Last Taken Type hydroCHLOROthiazide 75 mg PO BID 05/23/20 05/23/20 Unknown History [Hydrochlorothiazide] Active Meds: Active Medications Acetaminophen (Acetaminophen 325 Mg Tab) 650 mg PO Q4H PRN PRN Reason: Pain MILD(1-3)/Fever >100.5/MOYA Last Admin: 05/24/20 07:37 Dose: 650 mg Documented by: Ferrous Sulfate (Ferrous Sulfate 325 Mg Tab) 325 mg PO BID [facility] Last Admin: 05/23/20 22:52 Dose: 325 mg Documented by: Hydralazine HCl (Hydralazine 20 Mg/1 Ml Inj) 10 mg IV Q6HR PRN PRN Reason: Hypertension Last Admin: 05/24/20 07:37 Dose: 10 mg Documented by: Hydralazine HCl (Hydralazine 25 Mg Tab) 25 mg PO Q8HR [facility] Miscellaneous Medication (Hydrochlorothiazide [Hydrochlorothiazide]) 75 mg PO BID [facility] Ondansetron HCl (Ondansetron 4 Mg/2 Ml Inj) 4 mg IV Q8H PRN PRN Reason: Nausea And Vomiting Pantoprazole Sodium (Pantoprazole 40 Mg Inj) 40 mg IV BID [facility] Last Admin: 05/23/20 22:52 Dose: 40 mg Documented by: Sodium Chloride (Sodium Chloride 0.9% 10 Ml Flush Syringe) 10 ml IV BID [facility] Last Admin: 05/23/20 22:52 Dose: 10 ml Documented by: Sodium Chloride (Sodium Chloride 0.9% 10 Ml Flush Syringe) 10 ml IV PRN PRN PRN Reason: LINE FLUSH Last Admin: 05/24/20 00:29 Dose: 10 ml Documented by: I HAVE REVIEWED/RECONCILED MEDICATIONS Review of Systems - Review of Systems All systems: negative (as noted in the HPI.) Exam - Constitutional Vital Signs: Temp Pulse Resp BP Pulse Ox 98.2 F 81 14 193/108 88 05/24/20 07:28 05/24/20 07:28 05/24/20 07:28 05/24/20 07:28 05/24/20 07:28 General appearance: no acute distress - EENT Eyes: PERRL, EOM intact ENT: hearing intact, clear oral mucosa, no thrush - Neck Neck: supple, normal ROM - Respiratory Respiratory effort: normal Respiratory: bilateral: CTA - Cardiovascular Rhythm: regular Heart Sounds: Present: S1 & S2 Extremities: no ischemia, No edema - Gastrointestinal General gastrointestinal: Present: soft, non-tender, non-distended - Integumentary Integumentary: Present: clear, warm, dry - Neurologic Neurological: alert and oriented x3 - Labs CBC & Chem 7: 05/24/20 07:31 05/24/20 07:31 Lab Results: Laboratory Results - last 24 hr 05/23/20 05/23/20 05/23/20 16:25 16:25 18:21 WBC 7.7 RBC 2.60 L Hgb 4.6 L* Hct 15.3 L* MCV 59 L MCH 18 L MCHC 30 RDW 21.9 H Plt Count 297 Add Manual Diff Complete Total Counted 100 Seg Neuts % (Manual) 56.0 Lymphocytes % (Manual) 31.0 Monocytes % (Manual) 9.0 H Eosinophils % (Manual) 2.0 Basophils % (Manual) 2.0 H Nucleated RBC % Not Reportable Seg Neutrophils # Man 4.3 Band Neutrophils # 0.0 Lymphocytes # (Manual) 2.4 Abs React Lymphs (Man) 0.0 Monocytes # (Manual) 0.7 Eosinophils # (Manual) 0.2 Basophils # (Manual) 0.2 H Metamyelocytes # 0.0 Myelocytes # 0.0 Promyelocytes # 0.0 Blast Cells # 0.0 WBC Morphology Not Reportable Hypersegmented Neuts Not Reportable Hyposegmented Neuts Not Reportable Hypogranular Neuts Not Reportable Smudge Cells Not Reportable Toxic Granulation Not Reportable Toxic Vacuolation Not Reportable Dohle Bodies Not Reportable Pelger-Huet Anomaly Not Reportable Sacha Rods Not Reportable Platelet Estimate Not Reportable Clumped Platelets Not Reportable Plt Clumps, EDTA Not Reportable Large Platelets Not Reportable Giant Platelets Not Reportable Platelet Satelliting Not Reportable Plt Morphology Comment Not Reportable RBC Morphology Not Reportable Dimorphic RBCs Not Reportable Polychromasia Not Reportable Hypochromasia 1+ Poikilocytosis Not Reportable Anisocytosis 1+ Microcytosis 1+ Macrocytosis Not Reportable Spherocytes Not Reportable Pappenheimer Bodies Not Reportable Sickle Cells Not Reportable Target Cells Not Reportable Tear Drop Cells Not Reportable Ovalocytes Not Reportable Helmet Cells Not Reportable Morales-Ak Chin Bodies Not Reportable Herrin Rings Not Reportable Corning Cells Not Reportable Bite Cells Not Reportable Crenated Cell Not Reportable Elliptocytes Not Reportable Acanthocytes (Spur) Not Reportable Rouleaux Not Reportable Hemoglobin C Crystals Not Reportable Schistocytes Not Reportable Malaria parasites Not Reportable Franklin Bodies Not Reportable Hem Pathologist Commnt No Sodium 138 Potassium 3.5 L Chloride 102.0 Carbon Dioxide 25 Anion Gap 15 BUN 11 Creatinine 0.7 Estimated GFR > 60 BUN/Creatinine Ratio 16 Glucose 125 H Calcium 9.2 Magnesium Iron TIBC % Saturation Transferrin Total Bilirubin 0.20 AST 18 ALT 13 Alkaline Phosphatase 56 Troponin T < 0.010 NT-Pro-B Natriuret Pep 1509 H Total Protein 6.5 Albumin 3.8 L Albumin/Globulin Ratio 1.4 TSH Free T4 Blood Type O POSITIVE Antibody Screen Negative Crossmatch See Detail 05/23/20 05/23/20 05/24/20 19:57 19:57 07:31 WBC 6.4 RBC 3.36 L Hgb 6.6 L Hct 21.9 L D MCV 65 L MCH 20 L MCHC 30 RDW 26.8 H Plt Count 256 Add Manual Diff Total Counted Seg Neuts % (Manual) Lymphocytes % (Manual) Monocytes % (Manual) Eosinophils % (Manual) Basophils % (Manual) Nucleated RBC % Seg Neutrophils # Man Band Neutrophils # Lymphocytes # (Manual) Abs React Lymphs (Man) Monocytes # (Manual) Eosinophils # (Manual) Basophils # (Manual) Metamyelocytes # Myelocytes # Promyelocytes # Blast Cells # WBC Morphology Hypersegmented Neuts Hyposegmented Neuts Hypogranular Neuts Smudge Cells Toxic Granulation Toxic Vacuolation Dohle Bodies Pelger-Huet Anomaly Sacha Rods Platelet Estimate Clumped Platelets Plt Clumps, EDTA Large Platelets Giant Platelets Platelet Satelliting Plt Morphology Comment RBC Morphology Dimorphic RBCs Polychromasia Hypochromasia Poikilocytosis Anisocytosis Microcytosis Macrocytosis Spherocytes Pappenheimer Bodies Sickle Cells Target Cells Tear Drop Cells Ovalocytes Helmet Cells Morales-Ak Chin Bodies Herrin Rings Silvana Cells Bite Cells Crenated Cell Elliptocytes Acanthocytes (Spur) Rouleaux Hemoglobin C Crystals Schistocytes Malaria parasites Franklin Bodies Hem Pathologist Commnt Sodium Potassium Chloride Carbon Dioxide Anion Gap BUN Creatinine Estimated GFR BUN/Creatinine Ratio Glucose Calcium Magnesium 2.00 Iron TIBC % Saturation Transferrin Total Bilirubin AST ALT Alkaline Phosphatase Troponin T NT-Pro-B Natriuret Pep Total Protein Albumin Albumin/Globulin Ratio TSH 1.390 Free T4 1.32 Blood Type Antibody Screen Crossmatch 05/24/20 05/24/20 07:31 07:31 WBC RBC Hgb Hct MCV MCH MCHC RDW Plt Count Add Manual Diff Total Counted Seg Neuts % (Manual) Lymphocytes % (Manual) Monocytes % (Manual) Eosinophils % (Manual) Basophils % (Manual) Nucleated RBC % Seg Neutrophils # Man Band Neutrophils # Lymphocytes # (Manual) Abs React Lymphs (Man) Monocytes # (Manual) Eosinophils # (Manual) Basophils # (Manual) Metamyelocytes # Myelocytes # Promyelocytes # Blast Cells # WBC Morphology Hypersegmented Neuts Hyposegmented Neuts Hypogranular Neuts Smudge Cells Toxic Granulation Toxic Vacuolation Dohle Bodies Pelger-Huet Anomaly Sacha Rods Platelet Estimate Clumped Platelets Plt Clumps, EDTA Large Platelets Giant Platelets Platelet Satelliting Plt Morphology Comment RBC Morphology Dimorphic RBCs Polychromasia Hypochromasia Poikilocytosis Anisocytosis Microcytosis Macrocytosis Spherocytes Pappenheimer Bodies Sickle Cells Target Cells Tear Drop Cells Ovalocytes Helmet Cells Morales-Ak Chin Bodies Herrin Rings Silvana Cells Bite Cells Crenated Cell Elliptocytes Acanthocytes (Spur) Rouleaux Hemoglobin C Crystals Schistocytes Malaria parasites Franklin Bodies Hem Pathologist Commnt Sodium 137 Potassium 3.9 Chloride 104.8 Carbon Dioxide 21 L Anion Gap 15 BUN 7 Creatinine 0.5 L Estimated GFR > 60 BUN/Creatinine Ratio 14 Glucose 118 H Calcium 9.1 Magnesium Iron 27 L TIBC 357 % Saturation 7.56 Transferrin 325 Total Bilirubin AST ALT Alkaline Phosphatase Troponin T NT-Pro-B Natriuret Pep Total Protein Albumin Albumin/Globulin Ratio TSH Free T4 Blood Type Antibody Screen Crossmatch Assessment and Plan - Patient Problems (1) Symptomatic anemia Current Visit: Yes Status: Acute Plan to address problem: - The anemia is likely due to the uterine lesion noted on her CT scan, but given her age and heme (+) stool, need for blood transfusion, as well as no prior endo evaluation, will proceed to EGD/colonoscopy. - Continue MVI therapy; will also continue protonix. - Orders written for endoscopy tomorrow. (2) Heme + stool Current Visit: Yes Status: Acute
--- NOTE | 2020-05-24 11:25 | Consultation ---
History of Present Illness Consult date: 05/24/20 Consult reason: congestive heart failure History of present illness: 60-year old who presents to this hospital with shortness of breath, bilateral lower extremity edema, found with severe anemia, HCT at 15.3. In addition, patient noted with uncontrolled hypertension, systolic BP 180's to 190's. Patient reports a long standing history of fibroids and heavy post-menopausal bleeding. She also has a history of hypertension and diabetes. No prior cardiac history. A chest x-ray shows cardiomegaly with evidence of interstitial edema. An ECG is sinus rhythm with LVH. Cardiology consultation has been requested for CHF evaluation. Past History Past Medical History: diabetes, hypertension, other (See HPI) Past Surgical History: tonsillectomy, Other (Myomectomy) Social history: single, smoking. denies: alcohol abuse, prescription drug abuse, IV drug use Family history: diabetes, hypertension Medications and Allergies Allergies Allergy/AdvReac Type Severity Reaction Status Date / Time morphine Allergy Unknown Verified 11/13/17 15:45 Home Medications Medication Instructions Recorded Confirmed Last Taken Type hydroCHLOROthiazide 75 mg PO BID 05/23/20 05/23/20 Unknown History [Hydrochlorothiazide] Active Meds: Active Medications Acetaminophen (Acetaminophen 325 Mg Tab) 650 mg PO Q4H PRN PRN Reason: Pain MILD(1-3)/Fever >100.5/MOYA Last Admin: 05/24/20 07:37 Dose: 650 mg Documented by: Carvedilol (Carvedilol 6.25 Mg Tab) 6.25 mg PO BID [facility] Ferrous Sulfate (Ferrous Sulfate 325 Mg Tab) 325 mg PO BID [facility] Last Admin: 05/23/20 22:52 Dose: 325 mg Documented by: Furosemide (Furosemide 40 Mg/4 Ml Inj) 40 mg IV 0600,1800 [facility] Hydralazine HCl (Hydralazine 20 Mg/1 Ml Inj) 10 mg IV Q6HR PRN PRN Reason: Hypertension Last Admin: 05/24/20 07:37 Dose: 10 mg Documented by: Ondansetron HCl (Ondansetron 4 Mg/2 Ml Inj) 4 mg IV Q8H PRN PRN Reason: Nausea And Vomiting Pantoprazole Sodium (Pantoprazole 40 Mg Tab) 40 mg PO QDAC [facility] Polyethylene Glycol/Electrolytes (Polyethylene Glycol/Elect Soln 4000 Ml) 4,000 ml PO ONCE [facility] Stop: 05/24/20 17:00 Sodium Chloride (Sodium Chloride 0.9% 10 Ml Flush Syringe) 10 ml IV BID [facility] Last Admin: 05/23/20 22:52 Dose: 10 ml Documented by: Sodium Chloride (Sodium Chloride 0.9% 10 Ml Flush Syringe) 10 ml IV PRN PRN PRN Reason: LINE FLUSH Last Admin: 05/24/20 00:29 Dose: 10 ml Documented by: Spironolactone (Spironolactone 25 Mg Tab) 25 mg PO QDAY [facility] Valsartan (Valsartan 160mg Tab) 160 mg PO DAILY [facility] Physical Examination Vital Signs Temp Pulse Resp BP Pulse Ox 98.4 F 89 20 188/100 100 05/23/20 16:10 05/23/20 16:10 05/23/20 16:10 05/23/20 16:10 05/23/20 16:10 General appearance: no acute distress HEENT: Positive: PERRL Neck: Positive: trachea midline Cardiac: Positive: Reg Rate and Rhythm Lungs: Positive: Decreased Breath Sounds Neuro: Positive: Grossly Intact Extremities: Present: +1 Edema Results 05/24/20 07:31 05/24/20 07:31 Cardiac Enzymes 05/23/20 Range/Units 16:25 AST 18 (5-40) units/L CBC 05/23/20 05/24/20 Range/Units 16:25 07:31 WBC 7.7 6.4 (4.5-11.0) K/mm3 RBC 2.60 L 3.36 L (3.65-5.03) M/mm3 Hgb 4.6 L* 6.6 L (10.1-14.3) gm/dl Hct 15.3 L* 21.9 L D (30.3-42.9) % Plt Count 297 256 (140-440) K/mm3 Comprehensive Metabolic Panel 05/23/20 05/24/20 Range/Units 16:25 07:31 Sodium 138 137 (137-145) mmol/L Potassium 3.5 L 3.9 (3.6-5.0) mmol/L Chloride 102.0 104.8 (98-107) mmol/L Carbon Dioxide 25 21 L (22-30) mmol/L BUN 11 7 (7-17) mg/dL Creatinine 0.7 0.5 L (0.6-1.2) mg/dL Glucose 125 H 118 H (65-100) mg/dL Calcium 9.2 9.1 (8.4-10.2) mg/dL AST 18 (5-40) units/L ALT 13 (7-56) units/L Alkaline Phosphatase 56 (35-129) units/L Total Protein 6.5 (6.3-8.2) g/dL Albumin 3.8 L (3.9-5) g/dL Assessment and Plan Congestive heart failure Severe Anemia s/p transfusion of PRBCs Uncontrolled Hypertension Acute GI bleed Echocardiogram will be done for LV assessment. Will start GDMT for congestive heart failure. In addition, will use Valsartan 160 mg daily for BP management.
[2020-05-24] MEDS: FERROUS SULFATE 325 MG TAB PO SCH ×2 (13:18→20:59)
[2020-05-24] MEDS ORDERED: hydrALAZINE 25 MG TAB PO SCH (14:00)
[2020-05-24 15:58] LABS: Total Cells Counted 100
[2020-05-24 15:59] LABS: Anisocytosis 1+; Hypochromasia 1+
[2020-05-24] MEDS ORDERED: POLYETHYLENE GLYCOL/ELECT SOLN 4000 ML PO SCH (16:00)
[2020-05-24] MEDS: NON-FORMULARY EACH (Hydrochlorothiazide [Hydrochlorothiazide] 50 MG Tablet) PO SCH (16:35)
[2020-05-24] MEDS: PANTOPRAZOLE 40 MG INJ IV SCH (16:35)
[2020-05-24] MEDS: FUROSEMIDE 40 MG/4 ML INJ IV SCH (17:12)
[2020-05-24] MEDS: VALSARTAN 160MG TAB PO SCH (17:12)
[2020-05-24] MEDS: carvediloL 6.25 MG TAB PO SCH ×2 (17:12→20:59)
[2020-05-24] MEDS: SPIRONOLACTONE 25 MG TAB PO SCH (17:12)
[2020-05-24] MEDS ORDERED: SODIUM CHLORIDE 0.9% 500 ML 500 ML IV NR (19:16)
[2020-05-25] MEDS: hydrALAZINE 20 MG/1 ML INJ IV PRN (01:07)
[2020-05-25] MEDS: FUROSEMIDE 40 MG/4 ML INJ IV SCH ×2 (05:30→17:11)
--- NOTE | 2020-05-25 09:15 | Progress Note ---
Assessment and Plan Assessment and plan: --Dysfunctional uterine bleeding; Postmenopausal bleeding Management per BUSINESS CONTROL MANAGER Possible D&C and endometrial biopsy --Acute blood loss anemia; Severe anemia hemoglobin of 4.6 Received total 5 units of PRBC, H&H not done this morning Check H&H and transfuse additional if needed --Symptomatic severe anemia; Secondary to DUB/postmenopausal bleeding Received transfusion, additional transfusion as needed Treat underlying cause for BUSINESS CONTROL MANAGER --GI bleeding/severe anemia; Scheduled for EGD today Follow GI evaluation and recommendations IV Protonix --Congestive heart failure; Unknown ejection fraction Follow echocardiogram, Cardiology following --Obesity; BMI 35.9 Advised weight reduction dietary modification exercise as tolerated When medically stable --Ongoing tobacco use; Smoking cessation counseling done Advised nicotine patch as needed Counseling smoking cessation risks and consequences Complications, encouraged to quit tobacco use Spent 17 minutes counseling the patient --DVT prophylaxis; SCDs No pharmacologic anticoagulation in view of severe anemia and bleeding Closely monitor patient and adjust management as needed Consults and recommendations noted and appreciated Plan of care reviewed with the patient and her nurse Consults and recommendations noted and appreciated 05/24/2020; severe anemia received 2 units of PRBC transfusion Third unit transfusing, closely monitor H&H Additional transfusion as needed Disposition per BUSINESS CONTROL MANAGER 05/25/2020; EGD today, received total 5 units of PRBC transfusion Follow H&H[labs ordered but not done yet this morning] History Interval history: I have seen and examined the patient at the bedside Patient's chart and medications reviewed Patient was admitted with dysfunctional uterine bleeding, severe acute blood loss anemia Received total 5 units of PRBC Morning labs are not done Patient is scheduled for EGD per GI N.p.o. status, no new complaints Hospitalist Physical - Constitutional Vitals: Temp Pulse Resp BP Pulse Ox 98.6 F 69 18 158/85 100 05/25/20 08:08 05/25/20 08:08 05/25/20 08:08 05/25/20 08:08 05/25/20 08:08 General appearance: Present: mild distress, obese - EENT Eyes: Present: PERRL, EOM intact - Neck Neck: Present: supple, normal ROM - Respiratory Respiratory effort: normal Respiratory: bilateral: diminished, rales, negative: rhonchi, wheezing - Cardiovascular Rhythm: regular Heart Sounds: Present: S1 & S2 - Extremities Extremities: no ischemia, No edema - Abdominal General gastrointestinal: soft, non-tender, non-distended, normal bowel sounds - Integumentary Integumentary: Present: clear, warm - Psychiatric Psychiatric: appropriate mood/affect, cooperative - Neurologic Neurologic: CNII-XII intact, moves all extremities HEART Score - HEART Score Troponin: Troponin T < 0.010 ng/mL (0.00-0.029) 05/23/20 16:25 Results - Labs CBC & Chem 7: 05/25/20 13:47 05/25/20 13:47 Labs: Laboratory Last Values WBC 6.4 K/mm3 (4.5-11.0) 05/24/20 07:31 RBC 3.36 M/mm3 (3.65-5.03) L 05/24/20 07:31 Hgb 6.6 gm/dl (10.1-14.3) L 05/24/20 07:31 Hct 21.9 % (30.3-42.9) L D 05/24/20 07:31 MCV 65 fl (79-97) L 05/24/20 07:31 MCH 20 pg (28-32) L 05/24/20 07:31 MCHC 30 % (30-34) 05/24/20 07:31 RDW 26.8 % (13.2-15.2) H 05/24/20 07:31 Plt Count 256 K/mm3 (140-440) 05/24/20 07:31 Add Manual Diff Complete 05/24/20 07:31 Total Counted 100 05/24/20 07:31 Seg Neuts % (Manual) 58.0 % (40.0-70.0) 05/24/20 07:31 Lymphocytes % (Manual) 33.0 % (13.4-35.0) 05/24/20 07:31 Monocytes % (Manual) 6.0 % (0.0-7.3) 05/24/20 07:31 Eosinophils % (Manual) 2.0 % (0.0-4.3) 05/24/20 07:31 Basophils % (Manual) 1.0 % (0.0-1.8) 05/24/20 07:31 Nucleated RBC % Not Reportable 05/24/20 07:31 Seg Neutrophils # Man 3.7 K/mm3 (1.8-7.7) 05/24/20 07:31 Band Neutrophils # 0.0 K/mm3 05/24/20 07:31 Lymphocytes # (Manual) 2.1 K/mm3 (1.2-5.4) 05/24/20 07:31 Abs React Lymphs (Man) 0.0 K/mm3 05/24/20 07:31 Monocytes # (Manual) 0.4 K/mm3 (0.0-0.8) 05/24/20 07:31 Eosinophils # (Manual) 0.1 K/mm3 (0.0-0.4) 05/24/20 07:31 Basophils # (Manual) 0.1 K/mm3 (0.0-0.1) 05/24/20 07:31 Metamyelocytes # 0.0 K/mm3 05/24/20 07:31 Myelocytes # 0.0 K/mm3 05/24/20 07:31 Promyelocytes # 0.0 K/mm3 05/24/20 07:31 Blast Cells # 0.0 K/mm3 05/24/20 07:31 WBC Morphology Not Reportable 05/24/20 07:31 Hypersegmented Neuts Not Reportable 05/24/20 07:31 Hyposegmented Neuts Not Reportable 05/24/20 07:31 Hypogranular Neuts Not Reportable 05/24/20 07:31 Smudge Cells Not Reportable 05/24/20 07:31 Toxic Granulation Not Reportable 05/24/20 07:31 Toxic Vacuolation Not Reportable 05/24/20 07:31 Dohle Bodies Not Reportable 05/24/20 07:31 Pelger-Huet Anomaly Not Reportable 05/24/20 07:31 Sacha Rods Not Reportable 05/24/20 07:31 Platelet Estimate Not Reportable 05/24/20 07:31 Clumped Platelets Not Reportable 05/24/20 07:31 Plt Clumps, EDTA Not Reportable 05/24/20 07:31 Large Platelets Not Reportable 05/24/20 07:31 Giant Platelets Not Reportable 05/24/20 07:31 Platelet Satelliting Not Reportable 05/24/20 07:31 Plt Morphology Comment Not Reportable 05/24/20 07:31 RBC Morphology Not Reportable 05/24/20 07:31 Dimorphic RBCs Not Reportable 05/24/20 07:31 Polychromasia Not Reportable 05/24/20 07:31 Hypochromasia 1+ 05/24/20 07:31 Poikilocytosis Not Reportable 05/24/20 07:31 Anisocytosis 1+ 05/24/20 07:31 Microcytosis 1+ 05/24/20 07:31 Macrocytosis Not Reportable 05/24/20 07:31 Spherocytes Not Reportable 05/24/20 07:31 Pappenheimer Bodies Not Reportable 05/24/20 07:31 Sickle Cells Not Reportable 05/24/20 07:31 Target Cells Not Reportable 05/24/20 07:31 Tear Drop Cells Not Reportable 05/24/20 07:31 Ovalocytes Not Reportable 05/24/20 07:31 Helmet Cells Not Reportable 05/24/20 07:31 Morales-Chappell Bodies Not Reportable 05/24/20 07:31 [place] Rings Not Reportable 05/24/20 07:31 Silvana Cells Not Reportable 05/24/20 07:31 Bite Cells Not Reportable 05/24/20 07:31 Crenated Cell Not Reportable 05/24/20 07:31 Elliptocytes Not Reportable 05/24/20 07:31 Acanthocytes (Spur) Not Reportable 05/24/20 07:31 Rouleaux Not Reportable 05/24/20 07:31 Hemoglobin C Crystals Not Reportable 05/24/20 07:31 Schistocytes Not Reportable 05/24/20 07:31 Malaria parasites Not Reportable 05/24/20 07:31 Franklin Bodies Not Reportable 05/24/20 07:31 Hem Pathologist Commnt No 05/24/20 07:31 Sodium 137 mmol/L (137-145) 05/24/20 07:31 Potassium 3.9 mmol/L (3.6-5.0) 05/24/20 07:31 Chloride 104.8 mmol/L (98-107) 05/24/20 07:31 Carbon Dioxide 21 mmol/L (22-30) L 05/24/20 07:31 Anion Gap 15 mmol/L 05/24/20 07:31 BUN 7 mg/dL (7-17) 05/24/20 07:31 Creatinine 0.5 mg/dL (0.6-1.2) L 05/24/20 07:31 Estimated GFR > 60 ml/min 05/24/20 07:31 BUN/Creatinine Ratio 14 % 05/24/20 07:31 Glucose 118 mg/dL (65-100) H 05/24/20 07:31 Calcium 9.1 mg/dL (8.4-10.2) 05/24/20 07:31 Magnesium 2.00 mg/dL (1.7-2.3) 05/23/20 19:57 Iron 27 ug/dL (37-170) L 05/24/20 07:31 TIBC 357 mcg/dL (250-450) 05/24/20 07:31 % Saturation 7.56 % 05/24/20 07:31 Transferrin 325 mg/dl (192-382) 05/24/20 07:31 Total Bilirubin 0.20 mg/dL (0.1-1.2) 05/23/20 16:25 AST 18 units/L (5-40) 05/23/20 16:25 ALT 13 units/L (7-56) 05/23/20 16:25 Alkaline Phosphatase 56 units/L (35-129) 05/23/20 16:25 Troponin T < 0.010 ng/mL (0.00-0.029) 05/23/20 16:25 NT-Pro-B Natriuret Pep 1509 pg/mL (0-900) H 05/23/20 16:25 Total Protein 6.5 g/dL (6.3-8.2) 05/23/20 16:25 Albumin 3.8 g/dL (3.9-5) L 05/23/20 16:25 Albumin/Globulin Ratio 1.4 % 05/23/20 16:25 TSH 1.390 mlU/mL (0.270-4.200) 05/23/20 19:57 Free T4 1.32 ng/dL (0.76-1.46) 05/23/20 19:57 Blood Type O POSITIVE 05/23/20 18:21 Antibody Screen Negative 05/23/20 18:21 Crossmatch See Detail 05/23/20 18:21 Smiht/IV: Voiding Method Toilet Active Medications - Current Medications Current Medications: Generic Name Dose Route Start Last Admin Trade Name Freq PRN Reason Stop Dose Admin Acetaminophen 650 mg 05/23/20 18:49 05/24/20 20:54 Acetaminophen 325 Mg Tab PO 650 mg Q4H PRN Administration Pain MILD(1-3)/Fever >100.5/MOYA Carvedilol 6.25 mg 05/24/20 12:00 05/24/20 20:59 Carvedilol 6.25 Mg Tab PO 6.25 mg BID VIVIENNE Administration Ferrous Sulfate 325 mg 05/23/20 22:00 05/24/20 20:59 Ferrous Sulfate 325 Mg Tab PO 325 mg BID VIVIENNE Administration Furosemide 40 mg 05/24/20 18:00 05/25/20 05:30 Furosemide 40 Mg/4 Ml Inj IV 40 mg 0600,1800 VIVIENNE Administration Hydralazine HCl 10 mg 05/23/20 19:05 05/25/20 01:07 Hydralazine 20 Mg/1 Ml Inj IV 10 mg Q6HR PRN Administration Hypertension Ondansetron HCl 4 mg 05/23/20 18:49 Ondansetron 4 Mg/2 Ml Inj IV Q8H PRN Nausea And Vomiting Pantoprazole Sodium 40 mg 05/25/20 07:30 Pantoprazole 40 Mg Tab PO QDAC VIVIENNE Sodium Chloride 10 ml 05/23/20 22:00 05/24/20 20:59 Sodium Chloride 0.9% 10 Ml Flush Syringe IV 10 ml BID VIVIENNE Administration Sodium Chloride 10 ml 05/23/20 18:49 05/24/20 00:29 Sodium Chloride 0.9% 10 Ml Flush Syringe IV 10 ml PRN PRN Administration LINE FLUSH Spironolactone 25 mg 05/24/20 12:00 05/24/20 17:12 Spironolactone 25 Mg Tab PO 25 mg QDAY VIVIENNE Administration Valsartan 160 mg 05/24/20 12:00 05/24/20 17:12 Valsartan 160mg Tab PO 160 mg DAILY VIVIENNE Administration Nutrition/Malnutrition Assess - Dietary Evaluation Nutrition/Malnutrition Findings: Nutrition Notes Start: 05/24/20 11:36 Freq: Status: Active Protocol: Document 05/24/20 11:36 JERSON (Rec: 05/24/20 11:45 JERSON [email or web address]) Nutrition Notes Need for Assessment generated from: regional director,MST Initial or Follow up Assessment Current Diagnosis Hypertension,Heart Failure Other Pertinent Diagnosis PUD, GIB, severe anemia Current Diet Cardiac, Consistent CHO Labs/Tests Cr 0.5 BG 118 Pertinent Medications Reviewed Height 5 ft 4 in Weight 94.801 kg Usual Body Weight 104.09 kg [place] Body Weight (kg) 54.54 BMI 35.9 Intake Prior to Admission Poor Weight change and time frame 9% wt loss in 2 months Weight Status Morbidly Obese Subjective/Other Information RN screen for MST. Pt reports not eating well for 2 months due to inability to tolerate most foods, decreased appetite and weakness. Pt ate 50% of breakfast. Food prefrences noted. Pt states she does not have DM. Pt will be on clear liquids for lunch. Pt would like no salads and double proteins when diet advanced. Burn Absent Trauma Absent GI Symptoms None Current % PO Poor (25-49%) Minimum of two criteria Yes Energy Intake (severe) < or equal to 50% Estimated Energy Requirement > or equal to 5 days Interpretation of Weight Loss (severe) >5% in 1 month Body Fat Depletion Mild depletion (non-severe) Muscle Mass Mild Depletion (non-severe) #1 Nutrition Diagnosis Malnutrition Etiology symptomatic anemia, GIB As Evidenced by Signs and Symptoms 9% wt loss in 2 months, <50% EER for >5 days, fat and muscle depletion Is patient on ventilator? No Is Patient Ambulatory and/or Out of Bed Yes REE-([place]-ambulatory/OOB) [ 1940.913 [id number]] Kcal/Kg value to use for calculation 15 Approximate Energy Requirements Using 1422 kcal/Kg Calculation Used for Recommendations Kcal/kg Additional Notes Protein: 89-112g (1.2-1.5g/kg AdjBW 75kg) Fluid: 1 ml/kcal Nutrition Intervention Change Diet Order: Advance as medically able Add Supplement/Snack (indicate name/kcal Ensure Clear TID /protein ) Provides kCal: 720 Provides Protein (gm) 24 Goal #1 Meet needs as best as possible via clear liquid diet and ONS Anticipated Discharge Needs: Cardiac Follow-Up By: 05/26/20 Additional Comments FU for intakes and ONS tolerance
--- NOTE | 2020-05-25 09:17 | Event Note ---
Date: 05/25/20 No vaginal bleeding according to RN, patient to have EGD this am. Unfortunately unable to perform hysterscopy following EGD d/t availability.
[2020-05-25] MEDS: VALSARTAN 160MG TAB PO SCH (09:33)
[2020-05-25] MEDS: FERROUS SULFATE 325 MG TAB PO SCH ×2 (09:33→21:06)
[2020-05-25] MEDS: carvediloL 6.25 MG TAB PO SCH ×2 (09:34→21:05)
[2020-05-25] MEDS: PANTOPRAZOLE 40 MG TAB PO SCH (09:34)
[2020-05-25] MEDS: SPIRONOLACTONE 25 MG TAB PO SCH (09:35)
--- NOTE | 2020-05-25 10:05 | Progress Note ---
Assessment and Plan Congestive heart failure, diastolic Volume overload Severe Anemia s/p transfusion of PRBCs Hypertension -better Acute GI bleed An echocardiogram reports dilated left atria, moderate tricuspid regurgitation, dilated right heart chambers with severe pulmonary hypertension, RVSP 72 mmHg. Normal left ventricular systolic function, ejection fraction 65%. Subjective Date of service: 05/25/20 Interval history: Patient is resting in bed comfortably. She reports her breathing is better. She is planned for GI endoscopy today. Objective Vital Signs Temp Pulse Resp BP Pulse Ox 05/25/20 09:35 69 158/85 05/25/20 09:34 69 158/85 05/25/20 09:33 69 158/85 05/25/20 08:08 98.6 F 69 18 158/85 100 05/25/20 02:32 98.7 F 65 18 133/76 56 L 05/25/20 02:30 59 L 18 133/76 100 05/25/20 02:00 58 L 144/70 99 05/25/20 01:54 98.7 F 61 18 144/70 99 05/25/20 01:48 61 18 145/74 99 05/25/20 01:24 98.7 F 54 L 18 145/74 100 05/25/20 01:04 58 L 100 05/25/20 01:03 65 20 172/100 100 05/25/20 00:54 98.5 F 66 20 172/100 100 05/25/20 00:24 98.3 F 73 18 129/90 100 05/25/20 00:09 98.6 F 61 18 137/86 99 05/25/20 00:08 98.6 F 61 18 137/86 99 05/25/20 00:00 70 05/24/20 23:30 59 L 137/86 99 05/24/20 22:10 69 140/83 99 05/24/20 22:03 98.6 F 61 18 137/86 99 05/24/20 22:00 76 05/24/20 21:42 153/87 05/24/20 21:33 96.8 F L 68 18 140/83 99 05/24/20 21:03 98.7 F 69 18 153/87 100 05/24/20 20:48 98.3 F 63 20 155/86 100 05/24/20 20:43 99.0 F 84 20 154/71 100 05/24/20 20:12 99.0 F 84 20 154/71 100 05/24/20 15:47 98.5 F 73 18 161/95 95 05/24/20 12:48 98.0 F 75 18 149/74 100 05/24/20 10:35 100 - Physical Examination General: No Apparent Distress HEENT: Positive: PERRL Neck: Positive: trachea midline Cardiac: Positive: Reg Rate and Rhythm Lungs: Positive: Normal Breath Sounds Neuro: Positive: Grossly Intact Extremities: Present: +1 Edema
[2020-05-25] MEDS ORDERED: LIDOCAINE MPF (2%) 20 MG/1 ML VIAL 5 ML ONE (10:22)
[2020-05-25] MEDS ORDERED: propofoL 200 MG/20 ML VIAL IV ONE ×3 (10:23→11:14)
--- NOTE | 2020-05-25 10:26 | Anesthesia Day of Surgery ---
Anesthesia Day of Surgery - Day of Surgery Patient Examined: Yes Patient H&P Reviewed: Yes Patient is NPO: Yes
--- NOTE | 2020-05-25 10:26 | Anesthesia Consultation ---
Anesthesia Consult and Med Hx Date of service: 05/25/20 - Airway Anesthetic Teeth Evaluation: Poor ROM Head & Neck: Adequate Mental/Hyoid Distance: Adequate Mallampati Class: Class III Intubation Access Assessment: Possibly Difficult - Pulmonary Exam CTA: Yes - Cardiac Exam Cardiac Exam: RRR (grade 2/6 early systolic murmur) - Pre-Operative Health Status ASA Pre-Surgery Classification: ASA3 Proposed Anesthetic Plan: MAC - Pulmonary Hx Smoking: Yes (<1/2 PPD) Hx Respiratory Symptoms: Yes (dyspnea on admission now resolved) Home Oxygen Therapy: No - Cardiovascular System Hx Hypertension: Yes Hx Heart Attack/AMI: No Hx Percutaneous Transluminal Coronary Angioplasty (PTCA): No - Central Nervous System CVA: No - Gastrointestinal Hx Ulcer: Yes - Endocrine Hx Renal Disease: No Hx Liver Disease: No Hx Non-Insulin Dependent Diabetes: Yes Hx Thyroid Disease: No - Hematic Hx Anemia: Yes (s/p 5units pRBCs this admission) - Other Systems Hx Obesity: Yes (BMI 35) - Additional Comments Anesthesia Medical History Comments: No hx anesthetic complications.
[2020-05-25] MEDS ORDERED: SODIUM CHLORIDE 0.9% 1000 ML 1,000 ML ONE (10:50)
--- NOTE | 2020-05-25 11:12 | Electrocardiograph Report ---
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
[2020-05-25] MEDS ORDERED: SUCCINYLCHOLINE CHLORIDE 200 MG/10 ML INJ MDV ONE (11:19)
[2020-05-25] MEDS ORDERED: PHENYLEPHRINE/NS 1,000 MCG/10 ML SYRINGE (OR USE) IV ONE (11:19)
[2020-05-25] MEDS ORDERED: ePHEDrine SULFATE 50 MG/1 ML INJ ONE (11:19)
--- NOTE | 2020-05-25 11:21 | Post Operative Note ---
Pre-op diagnosis: Iron def anemia, Heme (+) stool Post-op diagnosis: other (Ulcer, Colon polyps, Tics, IH) Findings: 1. 1cm white-based duodenal ulcer; cold bx of antrum (H pylori) 2. Normal stomach/esophagus 3. Fair prep colon 4. 1mm polyp cecum (cold snare) 5. 2mm polyp sigmoid (cold snare) 6. Sigmoid tics, mild 7. IH Grade I Procedure: EGD with cold biopsy; Colonoscopy with cold snare polypectomy Anesthesia: MAC Surgeon: JOSE LAYTON Estimated blood loss: minimal Pathology: list (1. Gastric antrum, r/o H pylori. 2. Cecum polyp. 3. Sigmoid polyp.) Specimen disposition: to lab Condition: stable Disposition: floor (Recs: 1. OK to proceed with CALL CENTER NURSE surgery as needed. 2. Patient should d/c NSAIDs and tobacco. 3. Protonix daily therapy.)
[2020-05-25] MEDS ORDERED: GLYCOPYRROLATE 0.4 MG/2 ML INJ ONE (11:22)
[2020-05-25] MEDS ORDERED: ATROPINE 0.4 MG/1 ML INJ ONE (11:23)
[2020-05-25] MEDS ORDERED: SODIUM CHLORIDE P/F VIAL 10 ML 10 ML ONE (11:23)
--- NOTE | 2020-05-25 11:34 | Operative Report ---
PROCEDURE PERFORMED: Esophagogastroduodenoscopy with cold biopsy and colonoscopy with cold snare polypectomy. PREOPERATIVE DIAGNOSIS: Iron deficiency anemia with heme-positive stools. POSTOPERATIVE DIAGNOSES: Duodenal ulcer, fair preparation of the colon, colon polyps, diverticulosis, hemorrhoids. ENDOSCOPIST: Pascual Mcdonough. INSTRUMENT: Olympus video endoscope. MEDICATIONS: MAC anesthesia by anesthesia services. COMPLICATIONS: No apparent complications. ESTIMATED BLOOD LOSS: Minimal. SPECIMENS: 1. Gastric antrum, rule out H. pylori. 2. Cecum and sigmoid colon polyps. IMPLANTS: None. ASSISTANTS: None. CONDITION AT COMPLETION: Stable. TECHNIQUE: The patient was informed of the risks and benefits of the procedure. She signed the informed consent to proceed. She was placed in the left lateral decubitus position. The above sedative medications were given. Her vital signs remained stable throughout the procedure. The instrument was advanced from the mouth to the second portion of the duodenum under direct visualization. At that point, the bowel was insufflated and the endoscope was slowly withdrawn. The bed was then rotated and the colonoscope was advanced from the anus to the cecum under direct visualization. The cecum was identified by the appendiceal orifice and the ileocecal valve. At that point, the bowel was insufflated and the endoscope was slowly withdrawn. The quality of preparation was fair with a trace amount of liquid brown stool throughout the colon. FINDINGS: 1. 1 cm white-based duodenal ulcer, not actively bleeding. A. Cold biopsy taken of the antrum of the stomach to rule out H. pylori. 2. Normal stomach. 3. Normal esophagus. 4. Fair preparation of the colon with a trace amount of liquid brown stool throughout. 5. 1 mm polyp in the cecum, removed with cold snare polypectomy; 2 mm polyp in the sigmoid colon, removed with cold snare polypectomy. Both polyps were sent in the same pathology jar. 6. Sigmoid diverticulosis, mild. 7. Internal hemorrhoids, grade 1. RECOMMENDATIONS: 1. Okay to proceed with DIRECTOR OCCUPATIONAL surgery as needed. 2. The patient should discontinue nonsteroidal anti-inflammatory drugs and tobacco. 3. Protonix daily therapy. JOB# [id number] MDE/NTS
--- NOTE | 2020-05-25 13:38 | Post Anesthesia Evaluation ---
- Post Anesthesia Evaluation Patient Participated: Yes Airway Patent: Yes Stable Respiratory Function: Yes Nausea/Vomiting: No Temp > 96.8F: Yes Pain Manageable: Yes Adequeate Hydration: Yes Anesthesia Complications: No
[2020-05-25 14:50] LABS: Hematocrit 30.9 % (30.3-42.9); Hemoglobin 9.5 gm/dl (10.1-14.3); Mean Corpuscular HGB Conc 31 % (30-34); Platelet Count 268 K/mm3 (140-440)
[2020-05-25 14:54] LABS: Mean Corpuscular Volume 69 fl (79-97)
[2020-05-25 15:07] LABS: Blood Urea Nitrogen 6 mg/dL (7-17); Calcium 9.4 mg/dL (8.4-10.2); Hemolysis Index 20
[2020-05-25 15:16] LABS: BUN/Creatinine Ratio 9
[2020-05-25] MEDS: ACETAMINOPHEN 325 MG TAB PO PRN (16:42)
[2020-05-25] MEDS: HYDROmorphone 1 MG/1 ML INJ IV PRN (19:58)
[2020-05-25 21:43] LABS: Band Neutrophils # (Manual) 0.1 K/mm3; Giant Platelets Rare; Total Cells Counted 100
[2020-05-25 21:46] LABS: Ovalocytes Rare
[2020-05-25 21:47] LABS: Anisocytosis 3+; Hypochromasia 2+; Platelet Estimate Consistent w Auto
--- NOTE | 2020-05-25 22:13 | Consultation ---
History of Present Illness Consult date: 05/25/20 Past History Past Medical History: hypertension, diabetes, blood transfusion, GERD, other (Anxiety) Past Surgical History: tonsillectomy, D&C, myomectomy, other (Right breast biopsy with benign findings; uterine fibroid embolization) CLINICAL ASST History: fibroids, other (Patient had her last mammogram 6 years ago that was normal. States her last Pap smear was approximately 2010 that was also normal). denies: abnormal PAP smear, cancer, chlamydia, gonorrhea, hepatitis B, hepatitis C, herpes, HIV, syphilis, trichomonas Family/Genetic History: cancer (Maternal aunt with breast cancer who also had 2 daughters with breast cancer) Medications and Allergies Allergies Allergy/AdvReac Type Severity Reaction Status Date / Time morphine Allergy Unknown Verified 11/13/17 15:45 Home Medications Medication Instructions Recorded Confirmed Last Taken Type hydroCHLOROthiazide 75 mg PO BID 05/23/20 05/23/20 Unknown History [Hydrochlorothiazide] Active Meds: Active Medications Acetaminophen (Acetaminophen 325 Mg Tab) 650 mg PO Q4H PRN PRN Reason: Pain MILD(1-3)/Fever >100.5/MOYA Last Admin: 05/25/20 16:42 Dose: 650 mg Documented by: Carvedilol (Carvedilol 6.25 Mg Tab) 6.25 mg PO BID [facility] Last Admin: 05/25/20 21:05 Dose: 6.25 mg Documented by: Ferrous Sulfate (Ferrous Sulfate 325 Mg Tab) 325 mg PO BID [facility] Last Admin: 05/25/20 21:06 Dose: 325 mg Documented by: Furosemide (Furosemide 40 Mg/4 Ml Inj) 40 mg IV 0600,1800 [facility] Last Admin: 05/25/20 17:11 Dose: 40 mg Documented by: Hydralazine HCl (Hydralazine 20 Mg/1 Ml Inj) 10 mg IV Q6HR PRN PRN Reason: Hypertension Last Admin: 05/25/20 01:07 Dose: 10 mg Documented by: Hydromorphone HCl (Hydromorphone 1 Mg/1 Ml Inj) 1 mg IV Q4H PRN PRN Reason: Pain , Severe (7-10) Last Admin: 05/25/20 19:58 Dose: 1 mg Documented by: Ondansetron HCl (Ondansetron 4 Mg/2 Ml Inj) 4 mg IV Q8H PRN PRN Reason: Nausea And Vomiting Pantoprazole Sodium (Pantoprazole 40 Mg Tab) 40 mg PO QDAC [facility] Last Admin: 05/25/20 09:34 Dose: 40 mg Documented by: Sodium Chloride (Sodium Chloride 0.9% 10 Ml Flush Syringe) 10 ml IV BID [facility] Last Admin: 05/25/20 21:06 Dose: 10 ml Documented by: Sodium Chloride (Sodium Chloride 0.9% 10 Ml Flush Syringe) 10 ml IV PRN PRN PRN Reason: LINE FLUSH Last Admin: 05/25/20 20:02 Dose: 10 ml Documented by: Valsartan (Valsartan 160mg Tab) 160 mg PO DAILY [facility] Last Admin: 05/25/20 09:33 Dose: 160 mg Documented by: - Vital Signs Vital signs: Vital Signs Temp Pulse Resp BP Pulse Ox 98.4 F 89 20 188/100 100 05/23/20 16:10 05/23/20 16:10 05/23/20 16:10 05/23/20 16:10 05/23/20 16:10 Temp Pulse Resp BP Pulse Ox 97.5 F L 73 20 141/74 98 05/25/20 18:57 05/25/20 21:05 05/25/20 19:58 05/25/20 21:05 05/25/20 18:57 Results Result Diagrams: 05/25/20 13:47 05/25/20 13:47 Abnormal lab results 05/23/20 05/25/20 05/25/20 Range/Units 18:21 13:47 13:47 Hgb 9.5 L (10.1-14.3) gm/dl MCV 69 L (79-97) fl MCH 21 L (28-32) pg RDW 29.0 H (13.2-15.2) % Seg Neuts % (Manual) 73.0 H (40.0-70.0) % Nucleated RBC % 1.0 H (0.0-0.9) % BUN 6 L (7-17) mg/dL Glucose 148 H (65-100) mg/dL Crossmatch See Detail All other labs normal. Assessment and Plan - Patient Problems (1) Post-menopausal bleeding Current Visit: No Status: Inactive Plan to address problem: No bleeding at all so far during this admission H/H stable Will have her f/u in our office for evaluation of PMB Will sign off at this time (2) Symptomatic anemia Current Visit: No Status: Inactive (3) Guaiac positive stools Current Visit: No Status: Inactive (4) History of peptic ulcer disease Current Visit: No Status: Inactive (5) Epigastric pain Current Visit: No Status: Inactive (6) Chest pain Current Visit: No Status: Acute Qualifiers: Chest pain type: unspecified Qualified Code(s): R07.9 - Chest pain, unspecified (7) Dyspnea Current Visit: No Status: Inactive (8) Diabetes Current Visit: No Status: Acute (9) HTN (hypertension) Current Visit: No Status: Acute
[2020-05-26] MEDS: HYDROmorphone 1 MG/1 ML INJ IV PRN ×2 (00:43→00:53)
[2020-05-26] MEDS: FUROSEMIDE 40 MG/4 ML INJ IV SCH (06:44)
[2020-05-26 07:49] LABS: Hematocrit 28.6 % (30.3-42.9); Mean Corpuscular HGB Conc 32 % (30-34); Mean Corpuscular Volume 69 fl (79-97); Red Blood Count 4.18 M/mm3 (3.65-5.03)
[2020-05-26 07:50] LABS: Platelet Count 270 K/mm3 (140-440)
[2020-05-26] MEDS: PANTOPRAZOLE 40 MG TAB PO SCH (08:07)
[2020-05-26 08:37] LABS: BUN/Creatinine Ratio 14; Blood Urea Nitrogen 14 mg/dL (7-17); Calcium 9.4 mg/dL (8.4-10.2); Hemolysis Index 108
[2020-05-26] MEDS: carvediloL 6.25 MG TAB PO SCH (09:52)
[2020-05-26] MEDS: FERROUS SULFATE 325 MG TAB PO SCH (09:53)
[2020-05-26] MEDS: VALSARTAN 160MG TAB PO SCH (09:53)
[2020-05-26 09:55] VITALS: BP 152/79
--- NOTE | 2020-05-26 10:24 | Progress Note ---
Assessment and Plan Cor pulmonale The patient's echocardiogram shows well-preserved left ventricular size and systolic function with ejection fraction 65%. The cardiomegaly observed on the chest x-ray appears to be secondary to dilatation of the right heart chambers and the left atrium. Patient has severe pulmonary hypertension with pulmonary artery systolic pressure of 72. Severe Anemia s/p transfusion of PRBCs Hypertension -better Acute GI bleed Recommend: Pulmonary evaluation of the severe pulmonary hypertension and underlying cor pulmonale. Conservative cardiac management. Subjective Date of service: 05/26/20 Interval history: Patient is resting in bed comfortably. No cardiac complaints. Objective Vital Signs Temp Pulse Resp BP Pulse Ox 05/26/20 09:53 60 152/79 05/26/20 09:52 60 152/79 05/26/20 07:47 98.6 F 60 18 152/79 97 05/26/20 03:32 98.0 F 64 18 127/69 100 05/26/20 00:53 18 05/25/20 23:18 98.4 F 62 18 153/92 98 05/25/20 22:00 62 05/25/20 21:05 73 141/74 05/25/20 19:58 20 05/25/20 18:57 97.5 F L 73 16 136/77 98 05/25/20 16:36 98.4 F 73 18 141/74 100 05/25/20 12:34 98.2 F 66 18 166/86 97 05/25/20 12:00 68 17 153/85 98 05/25/20 11:45 65 18 136/76 97 05/25/20 11:40 74 19 126/88 97 05/25/20 11:35 78 18 121/61 98 05/25/20 11:30 97.6 F 77 20 122/63 98 - Physical Examination General: No Apparent Distress HEENT: Positive: PERRL Neck: Positive: trachea midline Cardiac: Positive: Reg Rate and Rhythm Lungs: Positive: Decreased Breath Sounds Neuro: Positive: Grossly Intact Extremities: Absent: edema - Labs and Meds CBC 05/25/20 05/26/20 Range/Units 13:47 03:58 WBC 9.1 7.7 (4.5-11.0) K/mm3 RBC 4.50 4.18 (3.65-5.03) M/mm3 Hgb 9.5 L 9.0 L (10.1-14.3) gm/dl Hct 30.9 D 28.6 L (30.3-42.9) % Plt Count 268 270 (140-440) K/mm3 Comprehensive Metabolic Panel 05/25/20 05/26/20 Range/Units 13:47 03:58 Sodium 141 145 (137-145) mmol/L Potassium 3.7 5.3 H D (3.6-5.0) mmol/L Chloride 102.5 104.8 (98-107) mmol/L Carbon Dioxide 26 21 L (22-30) mmol/L BUN 6 L 14 (7-17) mg/dL Creatinine 0.7 1.0 (0.6-1.2) mg/dL Glucose 148 H 89 (65-100) mg/dL Calcium 9.4 9.4 (8.4-10.2) mg/dL
[2020-05-26 10:41] LABS: Total Cells Counted 100
[2020-05-26 10:42] LABS: Anisocytosis 2+; Hypochromasia 2+; Toxic Vacuolation Few
[2020-05-26 10:43] LABS: Platelet Estimate Consistent w Auto
--- NOTE | 2020-05-26 14:50 | Discharge Summary ---
Providers - Providers Date of Admission: 05/23/20 18:49 Date of discharge: 05/26/20 Attending physician: JUSTA KAHN 05/23/20 18:29 Consult to Physician [CONS] Urgent Comment: Consulting Provider: MATT CUENCA Physician Instructions: Reason For Exam: hx of pud, anemia, guaic pos stool 05/23/20 18:31 Consult to Physician [CONS] Urgent Comment: Dr. Burnette spoke with Dr. Osei @ 1933 Consulting Provider: KOKI OSEI Physician Instructions: Reason For Exam: anemia, new onset chf 05/23/20 19:33 Consult to Physician [CONS] Routine Comment: Consulting Provider: ISABEL HERNANDEZ Physician Instructions: Reason For Exam: vaginal bleeding Primary care physician: CORSAGE MAKER Hospitalization Reason for admission: Worsening shortness of breath/generalized weakness/severe anemia Condition: Stable Pertinent studies: Chest x-ray Lower extremity venous Doppler Echocardiogram Procedures: EGD Hospital course: --Dysfunctional uterine bleeding; Postmenopausal bleeding Management per GROUT PUMP OPERATOR Possible D&C and endometrial biopsy --Acute blood loss anemia; Severe anemia hemoglobin of 4.6 Received total 5 units of PRBC, H&H not done this morning Check H&H and transfuse additional if needed --Symptomatic severe anemia; Secondary to DUB/postmenopausal bleeding Received transfusion, additional transfusion as needed Treat underlying cause for GROUT PUMP OPERATOR --GI bleeding/severe anemia; Scheduled for EGD today Follow GI evaluation and recommendations IV Protonix --Congestive heart failure; Unknown ejection fraction Follow echocardiogram, Cardiology following --Severe pulmonary hypertension --Obesity; BMI 35.9 Advised weight reduction dietary modification exercise as tolerated When medically stable --Ongoing tobacco use; Smoking cessation counseling done Advised nicotine patch as needed Counseling smoking cessation risks and consequences Complications, encouraged to quit tobacco use Spent 17 minutes counseling the patient Disposition: DC-30 STILL A PATIENT Time spent for discharge: 35 min Core Measure Documentation - Palliative Care Palliative Care/ Comfort Measures: Not Applicable - Core Measures Any of the following diagnoses?: none Exam - Constitutional Vitals: Temp Pulse Resp BP Pulse Ox 98.6 F 60 18 152/79 97 05/26/20 07:47 05/26/20 09:53 05/26/20 07:47 05/26/20 09:53 05/26/20 07:47 General appearance: Present: no acute distress, well-nourished - EENT Eyes: Present: PERRL, EOM intact - Neck Neck: Present: supple, normal ROM - Respiratory Respiratory effort: normal Respiratory: bilateral: diminished, negative: rales, rhonchi, wheezing - Cardiovascular Rhythm: regular Heart Sounds: Present: S1 & S2 - Extremities Extremities: no ischemia, No edema - Abdominal General gastrointestinal: Present: soft, non-tender, non-distended, normal bowel sounds - Integumentary Integumentary: Present: clear, warm - Musculoskeletal Musculoskeletal: strength equal bilaterally - Psychiatric Psychiatric: appropriate mood/affect, cooperative - Neurologic Neurologic: CNII-XII intact, moves all extremities Plan Activity: advance as tolerated Diet: other (Cardiac diet) Additional Instructions: Advised to see policy services representative per schedule. Advised to see pulmonary/lung specialist per schedule as given below. If you have worsenin g symptoms contact MD or go to emergency room. Advised to see GROUT PUMP OPERATOR per schedule. Advised smoking cessation, nicotine patch as needed. If you notice any bleeding contact MD or go to nearest emergency room as needed Follow up with: ISABEL HERNANDEZ MD [Staff Physician] - 7 Days PRIMARY CARE,MD [Primary Care Provider] - 7 Days KOKI OSEI MD [Staff Physician] - 7 Days ESTEPHANIE KHANNA MD [Staff Physician] - 7 Days Prescriptions: carvediloL [Coreg] 6.25 mg PO BID #60 tablet Valsartan [Diovan] 160 mg PO DAILY #30 tablet Ferrous Sulfate [Feosol 325 MG tab] 325 mg PO BID #60 tablet Furosemide [Lasix TAB] 40 mg PO QDAY #30 tablet Pantoprazole [Protonix TAB] 40 mg PO QDAC #30 tablet
== END 2020-05-26 15:20 | disposition home or self-care (01) | DRG 377 ==
LOC: ED 15:37 → 4A 18:49
PROVIDERS: ADMIT Internal Medicine; ATTEND Internal Medicine
PROC: 30233N1 Transfusion of Nonautologous Red Blood Cells into Peripheral Vein, Percutaneous Approach (ICD-10-PCS; 2020-05-23)
PROC: 0DB68ZX Excision of Stomach, Via Natural or Artificial Opening Endoscopic, Diagnostic (ICD-10-PCS; principal; 2020-05-25)
PROC: 0DBH8ZZ Excision of Cecum, Via Natural or Artificial Opening Endoscopic (ICD-10-PCS; 2020-05-25)
PROC: 0DBN8ZZ Excision of Sigmoid Colon, Via Natural or Artificial Opening Endoscopic (ICD-10-PCS; 2020-05-25)
DX: K57.91 Diverticulosis of intestine, part unspecified, without perforation or abscess with bleeding (principal); I50.41 Acute combined systolic (congestive) and diastolic (congestive) heart failure; D62 Acute posthemorrhagic anemia; K26.4 Chronic or unspecified duodenal ulcer with hemorrhage; N95.0 Postmenopausal bleeding; E11.9 Type 2 diabetes mellitus without complications; I11.0 Hypertensive heart disease with heart failure; K21.9 Gastro-esophageal reflux disease without esophagitis; N93.8 Other specified abnormal uterine and vaginal bleeding; F17.200 Nicotine dependence, unspecified, uncomplicated; I27.20 Pulmonary hypertension, unspecified; E66.9 Obesity, unspecified; K64.9 Unspecified hemorrhoids; E87.6 Hypokalemia; Z82.49 Family history of ischemic heart disease and other diseases of the circulatory system; Z83.3 Family history of diabetes mellitus; Z88.5 Allergy status to narcotic agent; Z79.899 Other long term (current) drug therapy; Z71.6 Tobacco abuse counseling
CPT/HCPCS: 36415; 36430; 71046; 80048; 80053; 82271; 83550; 83735; 83880; 84439; 84443; 84484; 85007; 85025; 86850; 86900; 86901; 86920; 88305; 88342; 93005; 93306; 93970; 96374; 96375; 96376; 99406; G0378; C9113; J0330; J0360; J0461; J1170; J1200; J1940; J2370; J2704; J7030; J7040; P9016

== ENCOUNTER 2020-07-05 12:07 | Emergency (ER) | payer OTHER, SELFPAY ==
--- NOTE | 2020-07-05 12:30 | Event Note ---
ED Screening Note ED Screening Note: OFF MEDS FOR 4 DAYS HTN CHEST PAIN/HEADACHE HAS PCP APPNT END OF MONTH RECENT DC FROM HOSP FOR ULCERS/HF- SEE EMR This initial assessment/diagnostic orders/clinical plan/treatment(s) is/are subject to change based on patients health status, clinical progression and re- assessment by fellow clinical providers in the ED. Further treatment and workup at subsequent clinical providers discretion. Patient/guardian urged not to elope from the ED as their condition may be serious if not clinically assessed and managed. Initial orders include: LABS EKG XRAY
--- NOTE | 2020-07-05 13:00 | XRay Report ---
CHEST 2 VIEWS INDICATION / CLINICAL INFORMATION: CHEST PAIN. COMPARISON: 05/23/2020 FINDINGS: SUPPORT DEVICES: None. HEART / MEDIASTINUM: Stable cardiomegaly LUNGS / PLEURA: No significant pulmonary or pleural abnormality. No pneumothorax. ADDITIONAL FINDINGS: No significant additional findings. IMPRESSION: 1. Stable cardiomegaly without CHF Signer Name: Demetrius Briggs MD Signed: 07/05/2020 12:55 PM Workstation Name: [id number]
[2020-07-05 13:17] LABS: Hematocrit 41.5 % (30.3-42.9); Hemoglobin 13.5 gm/dl (10.1-14.3); Mean Corpuscular HGB Conc 32 % (30-34); Mean Corpuscular Volume 79 fl (79-97); Platelet Count 314 K/mm3 (140-440); Red Blood Count 5.27 M/mm3 (3.65-5.03)
[2020-07-05 13:19] LABS: Red Cell Distribution Width 29.3 % (13.2-15.2)
[2020-07-05 13:49] LABS: Total Cells Counted 100
[2020-07-05 13:50] LABS: Anisocytosis 3+; Giant Platelets Rare; Hypochromasia 1+; Large Platelets Few; Platelet Estimate Consistent w Auto
[2020-07-05 14:23] LABS: Alanine Aminotransferase 16 units/L (7-56); Albumin 4.4 g/dL (3.9-5); BUN/Creatinine Ratio 23; Blood Urea Nitrogen 21 mg/dL (7-17); Calcium 10.1 mg/dL (8.4-10.2); Hemolysis Index 5
--- NOTE | 2020-07-05 22:15 | Emergency Department Report ---
ED Chest Pain HPI - General Chief Complaint: Chest Pain Stated Complaint: HBP MEDS PUI?: No Time Seen by Provider: 07/05/20 21:30 Source: patient Mode of arrival: Ambulatory Limitations: No Limitations - History of Present Illness Initial Comments: Patient is a 60-year-old female that presents emergency room with complaints of chest pain and headache and elevated blood pressure. Patient states she ran out of her blood pressure medication 1 week ago. Patient states her blood pressure going up slowly. Patient states she has been to the hospital 1 month ago for GI bleed and also found to have atrial flutter of atrial flutter and asked whether he placed her on Coreg. Patient states she was given Protonix and iron for gas tric ulcers and upper GI bleed and anemia. Patient states the chest pain is in the center of her chest. Patient states the chest pain was a 3 out of 10 and was a pressure. Patient states that her chest pain has now resolved. Patient states her chest pain is better with rest and worse with exertion. Patient denies shortness of breath. Patient states her headache is her entire head. Patient states her headache is a 2 out of 10. Patient states that her headache is better with blood pressure medications and rest. Patient states that the headache is worse with exertion. Patient denies blurry vision. Patient denies stiff neck. Patient denies fever and chills. Patient denies nausea vomiting. Patient denies recent travel. Patient denies recent international travel. Patient denies exposure to the novel coronavirus. Patient denies sick contacts. Patient denies fever and chills. Patient denies cough. Patient denies diarrhea. Patient denies coming in contact with anybody with symptoms of the novel coronavirus. MD Complaint: chest pain -: Sudden Onset: during rest Pain Location: substernal, left chest, right chest Pain Radiation: none Severity scale (0 -10): 3 Quality: pressure Consistency: now resolved Improves With: rest Worsens With: exertion re: denies: nausea, vomting, diaphoresis, dyspnea, sense of impending doom Other Symptoms: denies: cough, fever, syncope, rash, acid taste in mouth, leg swelling, palpitations, burping Treatments Prior to Arrival: none Aspirin use within the Past 7 Days: (0) No - Related Data On Oral Contraceptives: No Previous Rx's Medication Instructions Recorded Last Taken Type Ferrous Sulfate [Feosol 325 MG tab] 325 mg PO BID #60 tablet 05/26/20 Unknown Rx Furosemide [Lasix TAB] 40 mg PO QDAY #30 tablet 07/05/20 Unknown Rx Pantoprazole [Protonix TAB] 40 mg PO QDAC #30 tablet 07/05/20 Unknown Rx Valsartan [Diovan] 160 mg PO DAILY #30 tablet 07/05/20 Unknown Rx carvediloL [Coreg] 6.25 mg PO BID #60 tablet 07/05/20 Unknown Rx Allergies Allergy/AdvReac Type Severity Reaction Status Date / Time morphine Allergy Unknown Verified 11/13/17 15:45 Heart Score - HEART Score History: Slightly suspicious EKG: Normal Age: 45-65 Risk factors: No known risk factors Troponin: < normal limit HEART Score: 1 - EKG Read Time Time EKG Completed: 12:01 EKG Read Time: 12:03 ED Review of Systems ROS: Stated complaint: HBP MEDS Other details as noted in HPI Constitutional: denies: chills, fever Eyes: denies: eye pain, eye discharge, vision change ENT: denies: ear pain, throat pain Respiratory: denies: cough, shortness of breath, wheezing Cardiovascular: chest pain. denies: palpitations Endocrine: no symptoms reported Gastrointestinal: denies: abdominal pain, nausea, diarrhea Genitourinary: denies: urgency, dysuria, discharge Musculoskeletal: denies: back pain, joint swelling, arthralgia Skin: denies: rash, lesions Neurological: as per HPI, headache. denies: weakness, paresthesias Psychiatric: denies: anxiety, depression Hematological/Lymphatic: denies: easy bleeding, easy bruising ED Past Medical Hx - Past Medical History Previous Medical History?: Yes Hx Hypertension: Yes Hx Heart Attack/AMI: No Hx Diabetes: Yes Hx Liver Disease: No Hx Renal Disease: No Hx Psychiatric Treatment: Yes (anxiety) Additional medical history: fibroids - Surgical History Past Surgical History?: Yes Additional Surgical History: tonsilectomy/ myomectomy - Family History Family history: no significant - Social History Smoking Status: Current Some Day Smoker Substance Use Type: None - Medications Home Medications: Home Medications Medication Instructions Recorded Confirmed Last Taken Type Ferrous Sulfate [Feosol 325 MG tab] 325 mg PO BID #60 tablet 05/26/20 Unknown Rx Furosemide [Lasix TAB] 40 mg PO QDAY #30 tablet 07/05/20 Unknown Rx Pantoprazole [Protonix TAB] 40 mg PO QDAC #30 tablet 07/05/20 Unknown Rx Valsartan [Diovan] 160 mg PO DAILY #30 tablet 07/05/20 Unknown Rx carvediloL [Coreg] 6.25 mg PO BID #60 tablet 07/05/20 Unknown Rx ED Physical Exam - General Limitations: No Limitations General appearance: alert, in no apparent distress - Head Head exam: Present: atraumatic, normocephalic - Eye Eye exam: Present: normal appearance - ENT ENT exam: Present: mucous membranes moist - Neck Neck exam: Present: normal inspection - Respiratory Respiratory exam: Present: normal lung sounds bilaterally. Absent: respiratory distress - Cardiovascular Cardiovascular Exam: Present: regular rate, normal rhythm. Absent: systolic murmur, diastolic murmur, rubs, gallop - GI/Abdominal GI/Abdominal exam: Present: soft, normal bowel sounds - Extremities Exam Extremities exam: Present: normal inspection - Back Exam Back exam: Present: normal inspection - Neurological Exam Neurological exam: Present: alert, oriented X3 - Psychiatric Psychiatric exam: Present: normal affect, normal mood - Skin Skin exam: Present: warm, dry, intact, normal color. Absent: rash ED Course Vital Signs 07/05/20 07/05/20 07/05/20 12:25 22:30 22:32 Temperature 98.6 F Pulse Rate 67 66 79 Respiratory 18 13 Rate Blood Pressure 200/121 150/89 150/89 O2 Sat by Pulse 100 99 Oximetry 07/05/20 07/05/20 07/05/20 22:45 23:01 23:15 Temperature Pulse Rate 61 72 84 Respiratory 17 16 18 Rate Blood Pressure 155/90 169/94 156/93 O2 Sat by Pulse 97 97 99 Oximetry 07/05/20 23:45 Temperature Pulse Rate 73 Respiratory 17 Rate Blood Pressure 165/91 O2 Sat by Pulse 98 Oximetry - Reevaluation(s) Reevaluation #1: Patient given Coreg for elevated blood pressure. 07/05/20 22:33 Reevaluation #2: Patient states he is feeling better. Patient states is having heartburn. Patient was given a GI cocktail. 07/05/20 23:25 Reevaluation #3: Patient states he is feeling better. Patient's blood pressure is 170/90. Patient will be given refills. Patient information will be faxed over to our local cardiology group for further evaluation treatment of the chest pain since the patient presented to the ER with chest pain. Patient will be referred to the local cardiology group for risk stratification of the chest pain. I discussed all results and clinical findings with patient. I discussed plan of care with patient. Patient agrees with plan of care. Patient is stable for discharge. Patient will be discharged home. Patient given discharge instructions. Patient voiced understanding of discharge instructions. 07/05/20 23:40 JOSEY score - Josey Score Age > 65: (0) No Aspirin use within the Past 7 Days: (0) No 3 or more CAD Risk Factors: (0) No 2 or more Angina events in past 24 hrs: (1) Yes Known CAD with more than 50% Stenosis: (0) No Elevated Cardiac Markers: (0) No ST Deviation Greater than 0.5mm: (0) No JOSEY Score: 1 ED Medical Decision Making - Lab Data Result diagrams: 07/05/20 12:37 07/05/20 12:37 - EKG Data -: EKG Interpreted by Me EKG shows normal: axis, intervals, ST-T waves Rate: normal - EKG Data Interpretation: LVH, other (Right bundle branch block, A. Flutter, LVH) - Radiology Data Radiology results: report reviewed, image reviewed interpreted by me: Chest x-ray: No pneumonia, no pneumothorax, no foreign body, no osseous findings, no acute findings. Cardiomegaly CHEST 2 VIEWS INDICATION / CLINICAL INFORMATION: CHEST PAIN. COMPARISON: 05/23/2020 FINDINGS: SUPPORT DEVICES: None. HEART / MEDIASTINUM: Stable cardiomegaly LUNGS / PLEURA: No significant pulmonary or pleural abnormality. No pneumothorax. ADDITIONAL FINDINGS: No significant additional findings. IMPRESSION: 1. Stable cardiomegaly without CHF - Medical Decision Making Patient is a 60-year-old female that presents emergency room with complaints of chest pain and headache. Patient's headache and chest pressure resolved prior to initial evaluation. Patient found to have a severely elevated blood pressure. Patient was noncompliant with her blood pressure medication. Patient given a dose of her Coreg in the ER and her symptoms improved. Patient given a GI cocktail in the ER because she started having reflux pain. Patient's chest pain and headache were completely resolved prior to discharge. Patient responded well to treatment. Patient's reflux pain was completely resolved prior to discharge. Patient had labs done which were essentially unremarkable. Patient had 2 troponins which were negative. Patient's EKG shows A. Flutter. Patient history of a flutter. Patient's rate controlled with her dose of Coreg. Patient had a chest x-ray and it was negative for acute finding and showed cardiomegaly without CHF. I personally reviewed the EKG and chest x-ray. Patient stable for discharge. Patient be discharged home. Patient information was faxed over to our local cable testers helper for further evaluation treatment of chest pain and risk stratification. - Differential Diagnosis Chest pain, headache, noncompliance, elevated blood pressure, Critical Care Time: Yes Critical care time in (mins) excluding proc time.: 35 Critical care attestation.: If time is entered above; I have spent that time in minutes in the direct care of this critically ill patient, excluding procedure time. Critical Care Time: 35 minutes ED Disposition Clinical Impression: Noncompliance, Hypertensive emergency Chest pain Qualifiers: Chest pain type: unspecified Qualified Code(s): R07.9 - Chest pain, unspecified Headache Qualifiers: Headache type: unspecified Headache chronicity pattern: acute headache Intractability: not intractable Qualified Code(s): R51.9 - Headache, unspecified Disposition: DC-01 TO HOME OR SELFCARE Is pt being admited?: No Does the pt Need Aspirin: No Condition: Stable Instructions: Nonspecific Chest Pain, Adult, Hypertension, Adult, [id number], Managing Your Hypertension, Hypertension (ED) Additional Instructions: Patient to follow-up with primary care in 2 to 3 days. Patient to follow-up with cardiology in 2 to 3 days. Patient to rest. Patient to increase water. Patient to avoid strenuous exercise or heavy lifting until cleared by cardiology. Patient to take Tylenol or ibuprofen as needed for pain. Patient to take meds as directed. Patient to return to the ER if condition worsens, changes or new symptoms arise. Prescriptions: carvediloL [Coreg] 6.25 mg PO BID #60 tablet Valsartan [Diovan] 160 mg PO DAILY #30 tablet Furosemide [Lasix TAB] 40 mg PO QDAY #30 tablet Pantoprazole [Protonix TAB] 40 mg PO QDAC #30 tablet Referrals: PRIMARY CARE, [Primary Care Provider] - 2-3 Days PRIYANKA CONLEY MD [Staff Physician] - 2-3 Days Time of Disposition: 23:38
[2020-07-05] MEDS ORDERED: carvediloL 6.25 MG TAB PO ONE ×2 (22:16→22:29)
[2020-07-05] MEDS ORDERED: carvediloL 6.25 MG TAB ONE (22:29)
[2020-07-05] MEDS ORDERED: LIDOCAINE VISCOUS 2% 15 ML ORAL LIQD PO ONE (23:21)
[2020-07-05] MEDS ORDERED: ALUM-MAG HYDROXIDE-SIMETHICONE 200-200-20MG/5ML ORAL LIQD 30 ML PO ONE (23:21)
[2020-07-06 01:37] VITALS: BP 165/91
--- NOTE | 2020-07-06 17:47 | Electrocardiograph Report ---
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
== END 2020-07-06 00:40 | disposition home or self-care (01) ==
LOC: ED 12:07
DX: I16.0 Hypertensive urgency (principal); E11.9 Type 2 diabetes mellitus without complications; F41.9 Anxiety disorder, unspecified; F17.200 Nicotine dependence, unspecified, uncomplicated; Z79.899 Other long term (current) drug therapy; Z88.6 Allergy status to analgesic agent
CPT/HCPCS: 36415; 71046; 80053; 83880; 84484; 85007; 85025; 93005; 99283

== ENCOUNTER 2021-10-19 07:17 | Emergency (ER) | payer OTHER, SELFPAY ==
[2021-10-19 08:09] LABS: Basophils # (Auto) 0.1 K/mm3 (0.0-0.1); Basophils % (Auto) 1.6 % (0.0-1.8); Eosinophils # (Auto) 0.2 K/mm3 (0.0-0.4); Eosinophils % (Auto) 2.8 % (0.0-4.3); Hematocrit 31.9 % (30.3-42.9); Hemoglobin 10.7 gm/dl (10.1-14.3); Lymphocytes # (Auto) 1.5 K/mm3 (1.2-5.4); Lymphocytes % (Auto) 22.4 % (13.4-35.0); Mean Corpuscular HGB Conc 34 % (30-34); Mean Corpuscular Volume 86 fl (79-97); Monocytes # (Auto) 0.5 K/mm3 (0.0-0.8); Platelet Count 282 K/mm3 (140-440); Red Blood Count 3.72 M/mm3 (3.65-5.03); Red Cell Distribution Width 14.5 % (13.2-15.2)
[2021-10-19 08:23] LABS: INR 0.96 (0.87-1.13)
[2021-10-19 08:24] LABS: Partial Thromboplastin Time 29.1 Sec. (24.2-36.6)
[2021-10-19 08:34] LABS: Alanine Aminotransferase 33 units/L (7-56); Albumin 4.4 g/dL (3.9-5); Blood Urea Nitrogen 16 mg/dL (7-17); Calcium 9.7 mg/dL (8.4-10.2); Hemolysis Index 0
[2021-10-19 08:40] LABS: BUN/Creatinine Ratio 23
[2021-10-19] MEDS ORDERED: PANTOPRAZOLE 40 MG INJ IV ONE (08:41)
--- NOTE | 2021-10-19 08:43 | Emergency Department Report ---
HPI - HPI HPI: Room 23 The patient is a 61-year-old female present with a chief complaint of abdominal pain. Patient states for the past 3 weeks she is at constant sharp epigastric pain rating to her back. Patient states it feels similar to her previous peptic ulcer. Patient states she had 1 episode of emesis and the vomitus was brownish- red in color. Patient states her last bowel movement occurred 4 days ago and was dark brown in color. Patient gives her abdominal pain a score of 8/10. The patient drove her self to the emergency department and there are no visitors present <APRIL ANDERSON - Last Filed: 10/19/21 15:02> <OMID NAJERA - Last Filed: 10/19/21 17:18> - General Chief Complaint: Dyspnea/Respdistress Time Seen by Provider: 10/19/21 08:21 ED Past Medical Hx - Past Medical History Hx Hypertension: Yes Hx Psychiatric Treatment: Yes (anxiety) Additional medical history: fibroids, peptic ulcer disease, atrial fibrillation - Surgical History Additional Surgical History: tonsilectomy/ myomectomy - Family History Family history: no significant - Social History Smoking Status: Current Every Day Smoker (1/4 pack/day) Substance Use Type: None (Denies illicit drug use), Alcohol (Rarely) <APRIL ANDERSON - Last Filed: 10/19/21 15:02> <OMID NAJERA - Last Filed: 10/19/21 17:18> - Medications Home Medications: Home Medications Medication Instructions Recorded Confirmed Last Taken Type Ferrous Sulfate [Feosol 325 MG tab] 325 mg PO BID #60 tablet 05/26/20 Unknown Rx Furosemide [Lasix TAB] 40 mg PO QDAY #30 tablet 07/05/20 Unknown Rx Pantoprazole [Protonix TAB] 40 mg PO QDAC #30 tablet 07/05/20 Unknown Rx Valsartan [Diovan] 160 mg PO DAILY #30 tablet 07/05/20 Unknown Rx carvediloL [Coreg] 6.25 mg PO BID #60 tablet 07/05/20 Unknown Rx Docusate Sodium [Colace] 100 mg PO BID PRN #20 capsule 10/19/21 Unknown Rx HYDROcodone/APAP 5-325 [Benedict 1 - 2 each PO Q6HR PRN #10 tablet 10/19/21 Unknown Rx 5/325] Pantoprazole [Protonix] 40 mg PO QDAY #30 tablet 10/19/21 Unknown Rx Rivaroxaban [Xarelto] 10 mg PO QDAY #60 tab 10/19/21 Unknown Rx ED Review of Systems ROS: Stated complaint: ABD PAIN Other details as noted in HPI Constitutional: no symptoms reported Eyes: denies: eye pain ENT: denies: throat pain Respiratory: no symptoms reported Cardiovascular: denies: chest pain Endocrine: no symptoms reported Gastrointestinal: abdominal pain, nausea, vomiting, hematemesis (?), melena (?) Genitourinary: denies: dysuria Musculoskeletal: back pain Neurological: denies: headache <APRIL ANDERSON K - Last Filed: 10/19/21 15:02> ROS: Stated complaint: ABD PAIN Other details as noted in HPI <OMID NAJERA C - Last Filed: 10/19/21 17:18> Physical Exam - Physical Exam Vital Signs: Vital Signs 10/19/21 10/19/21 10/19/21 07:29 08:21 08:25 Temperature 98.8 F Pulse Rate 92 H Respiratory 18 Rate Blood Pressure 181/118 Blood Pressure 203/113 [Left] O2 Sat by Pulse 99 100 100 Oximetry 10/19/21 08:30 Temperature Pulse Rate Respiratory Rate Blood Pressure Blood Pressure [Left] O2 Sat by Pulse 98 Oximetry Physical Exam: GENERAL: The patient is well-developed well-nourished female lying on stretcher not appearing to be in acute distress. [] HEENT: Normocephalic. Atraumatic. Extraocular motions are intact. Patient has moist mucous membranes. NECK: Supple. Trachea midline CHEST/LUNGS: Clear to auscultation. There is no respiratory distress noted. HEART/CARDIOVASCULAR: Regular. There is no tachycardia. There is no gallop rub or murmur. ABDOMEN: Abdomen is soft, with mild discomfort to palpation left upper quadrant, midepigastric and right upper quadrant. There is no rebound or guarding. Patient has normal bowel sounds. There is no abdominal distention. SKIN: There is no rash. There is no edema. There is no diaphoresis. NEURO: The patient is awake, alert, and oriented. The patient is cooperative. The patient has no focal neurologic deficits. The patient has normal speech. GCS 15 MUSCULOSKELETAL: There is no evidence of acute injury. RECTAL: <APRIL ANDERSON K - Last Filed: 10/19/21 15:02> - Physical Exam Vital Signs: Vital Signs 10/19/21 10/19/21 10/19/21 07:29 08:21 08:25 Temperature 98.8 F Pulse Rate 92 H Respiratory 18 Rate Blood Pressure 181/118 Blood Pressure 203/113 [Left] O2 Sat by Pulse 99 100 100 Oximetry 10/19/21 10/19/21 10/19/21 08:30 10:35 10:41 Temperature Pulse Rate Respiratory Rate Blood Pressure 181/118 225/127 Blood Pressure [Left] O2 Sat by Pulse 98 100 100 Oximetry 10/19/21 10/19/21 10/19/21 10:52 10:56 14:11 Temperature Pulse Rate Respiratory Rate Blood Pressure 225/127 225/127 Blood Pressure [Left] O2 Sat by Pulse 99 100 98 Oximetry 10/19/21 10/19/21 14:16 16:43 Temperature Pulse Rate 83 Respiratory Rate Blood Pressure 205/105 Blood Pressure 178/92 [Left] O2 Sat by Pulse 99 Oximetry <OMID NAJERA - Last Filed: 10/19/21 17:18> ED Course Vital Signs 10/19/21 10/19/21 10/19/21 07:29 08:21 08:25 Temperature 98.8 F Pulse Rate 92 H Respiratory 18 Rate Blood Pressure 181/118 Blood Pressure 203/113 [Left] O2 Sat by Pulse 99 100 100 Oximetry 10/19/21 08:30 Temperature Pulse Rate Respiratory Rate Blood Pressure Blood Pressure [Left] O2 Sat by Pulse 98 Oximetry - Consultations Consultation #1: 10/19/21 14:53 Case discussed with jet engine mechanic Dr. Gastelum-if patient is discharged home may be discharged with prescription for Xarelto 10 mg daily <APRIL ANDERSON K - Last Filed: 10/19/21 15:02> Vital Signs 10/19/21 10/19/21 10/19/21 07:29 08:21 08:25 Temperature 98.8 F Pulse Rate 92 H Respiratory 18 Rate Blood Pressure 181/118 Blood Pressure 203/113 [Left] O2 Sat by Pulse 99 100 100 Oximetry 10/19/21 10/19/21 10/19/21 08:30 10:35 10:41 Temperature Pulse Rate Respiratory Rate Blood Pressure 181/118 225/127 Blood Pressure [Left] O2 Sat by Pulse 98 100 100 Oximetry 10/19/21 10/19/21 10/19/21 10:52 10:56 14:11 Temperature Pulse Rate Respiratory Rate Blood Pressure 225/127 225/127 Blood Pressure [Left] O2 Sat by Pulse 99 100 98 Oximetry 10/19/21 10/19/21 14:16 16:43 Temperature Pulse Rate 83 Respiratory Rate Blood Pressure 205/105 Blood Pressure 178/92 [Left] O2 Sat by Pulse 99 Oximetry <OMID NAJERA - Last Filed: 10/19/21 17:18> ED Medical Decision Making - Lab Data Result diagrams: 10/19/21 07:47 10/19/21 07:47 - Differential Diagnosis PUD, GI bleed, pancreatitis, AAA, ischemic bowel <APRIL ANDERSON - Last Filed: 10/19/21 15:02> - Lab Data Result diagrams: 10/19/21 07:47 10/19/21 07:47 - Radiology Data Radiology results: report reviewed CTA ABDOMEN AND PELVIS WITHOUT AND WITH IV CONTRAST INDICATION / CLINICAL INFORMATION: Epigastric pain radiating to back. TECHNIQUE: Axial CT images were obtained through the abdomen and pelvis before and after after injection of IV contrast. 3 plane MIP / 3D reconstructions were produced. All CT scans at this location are performed using CT dose reduction for ALARA by means of automated exposure control. COMPARISON: None available. FINDINGS: Aorta: Mild atherosclerotic calcification of the abdominal aorta. No evidence of aneurysm or dissection. Renal arteries: No significant narrowing or occlusion. Celiac artery: No significant abnormality. Superior Mesenteric Artery: No significant abnormality. Inferior mesenteric artery: No significant abnormality. Right Iliac Arteries: No significant abnormality.. Left Iliac Arteries: No significant abnormality.. Additional Findings: Marked cardiac enlargement without pericardial effusion. There is mild interstitial edema and atelectasis in the lung bases. On precontrast images, there is increased de nsity within bilateral renal calyces and involving the left renal pelvis and right renal pelvis and proximal ureter. No hydronephrosis. This could be related to prior contrast administration or nephrolithiasis. Bladder is unremarkable. Uterus is enlarged consistent with fibroid disease. No suspicious adnexal mass. Moderate colonic stool burden. Mild noninflamed colonic diverticulosis. No colonic wall thickening or pericolonic inflammatory stranding. Stomach and small bowel are within normal limits. No evidence of obstruction. Normal appendix. No adenopathy or free fluid. Skeletal Structures: Disc degeneration at L4-L5 with minimal anterolisthesis. No acute findings. IMPRESSION: 1. No acute findings of the abdomen or pelvis. No localized bowel inflammation. No evidence of active intraluminal GI bleed. 2. Increased density within the proximal renal collecting systems bilaterally, to include both renal pelves and right proximal ureter. This could be related to prior contrast administration. In the absence of a history of recent contrast administration, this could reflect bilateral renal calcific disease. However, there is no evidence of hydronephrosis of either collecting system. 3. Cardiac enlargement with mild interstitial edema and atelectasis in the lung bases. - Medical Decision Making I was informed that patient was evaluated for possible GI bleed and had a negative stool guaiac and normal H&H. Patient was signed out pending CTA results. Patient was reassessed prior to discharge and states she is feeling much better. She is informed of her CAT scan results showing fibroid uterus, mild pulmonary edema, mild constipation, no other acute intra-abdominal pathology. Patient admits to intermittent noncompliance with her Lasix because it hinders her ability to work due to diuresis. Her blood pressure improved after receiving clonidine prior to signout. 1 dose of IV Lasix provided prior to discharge and patient states she will continue compliance with her Lasix at home. She is requesting alternative cardiology group besides [facility]. 7 heart follow- up will be provided. Stool softeners will also be provided given that patient has moderate stool burden and is prescribed Benedict. <OMID NAJERA - Last Filed: 10/19/21 17:18> Critical care attestation.: If time is entered above; I have spent that time in minutes in the direct care of this critically ill patient, excluding procedure time. <APRIL ANDERSON - Last Filed: 10/19/21 15:02> Critical care attestation.: If time is entered above; I have spent that time in minutes in the direct care of this critically ill patient, excluding procedure time. <OMID NAJERA - Last Filed: 10/19/21 17:18> ED Disposition <APRIL ANDERSON - Last Filed: 10/19/21 15:02> Is pt being admited?: No Does the pt Need Aspirin: No Time of Disposition: 17:17 <MJ NAJERARandall Nazario - Last Filed: 10/19/21 17:18> Clinical Impression: Coffee ground emesis, Mild congestive heart failure, Uterine fibroid, Constipation, Uncontrolled hypertension, Chronic atrial fibrillation Disposition: 01 HOME / SELF CARE / HOMELESS Condition: Stable Instructions: Hypertension (ED), Gastrointestinal Bleeding, [id number], Heart Failure, Self Care, [id number], Uterine Fibroids, [id number] Additional Instructions: Take the medication as prescribed. Follow-up with your doctor or doctor/clinic provided. Return if symptoms worsen as indicated by your discharge instructions. Prescriptions: Docusate Sodium [Colace] 100 mg PO BID PRN #20 capsule PRN Reason: Constipation HYDROcodone/APAP 5-325 [Benedict 5/325] 1 - 2 each PO Q6HR PRN #10 tablet PRN Reason: Pain Pantoprazole [Protonix] 40 mg PO QDAY #30 tablet Rivaroxaban [Xarelto] 10 mg PO QDAY #60 tab Referrals: PRIMARY CARE, [Primary Care Provider] - 3-5 Days EMILIANA ANGELES MD [Staff Physician] - 3-5 Days (Database Management Specialist)
--- NOTE | 2021-10-19 09:23 | XRay Report ---
CHEST 2 VIEWS INDICATION / CLINICAL INFORMATION: Epigastric pain radiating to back. COMPARISON: 07/05/2020 FINDINGS: SUPPORT DEVICES: None. HEART / MEDIASTINUM: There is enlargement of the cardiac silhouette. LUNGS / PLEURA: No focal infiltrate trait is seen. There is mild venous congestion. No pneumothorax. ADDITIONAL FINDINGS: No significant additional findings. IMPRESSION: 1. There is enlargement of the cardiac silhouette. There is mild venous congestion. Signer Name: Alfie Patel MD Signed: 10/19/2021 9:19 AM Workstation Name: [id number]
[2021-10-19] MEDS ORDERED: ALUM-MAG HYDROXIDE-SIMETHICONE 200-200-20MG/5ML ORAL LIQD 30 ML PO ONE (13:19)
[2021-10-19] MEDS ORDERED: ONDANSETRON 4 MG/2 ML INJ IV ONE (13:19)
[2021-10-19] MEDS ORDERED: LIDOCAINE VISCOUS 2% 15 ML ORAL LIQD PO ONE (13:19)
[2021-10-19] MEDS ORDERED: cloNIDine 0.2 MG TAB PO ONE (14:43)
--- NOTE | 2021-10-19 15:37 | Cat Scan Report ---
CTA ABDOMEN AND PELVIS WITHOUT AND WITH IV CONTRAST INDICATION / CLINICAL INFORMATION: Epigastric pain radiating to back. TECHNIQUE: Axial CT images were obtained through the abdomen and pelvis before and after after injection of IV c ontrast. 3 plane MIP / 3D reconstructions were produced. All CT scans at this location are performed using CT dose reduction for ALARA by means of automated exposure control. COMPARISON: None available. FINDINGS: Aorta: Mild atherosclerotic calcification of the abdominal aorta. No evidence of aneurysm or dissecti on. Renal arteries: No significant narrowing or occlusion. Celiac artery: No significant abnormality. Superior Mesenteric Artery: No significant abnormality. Inferior mesenteric artery: No significant abnormality. Right Iliac Arteries: No significant abnormality.. Left Iliac Arteries: No significant abnormality.. Additional Findings: Marked cardiac enlargement without pericardial effusion. There is mild interstit ial edema and atelectasis in the lung bases. On precontrast images, there is increased density within bilateral renal calyces and involving the left renal pelvis and right renal pelvis and proximal uret er. No hydronephrosis. This could be related to prior contrast administration or nephrolithiasis. Pantera dder is unremarkable. Uterus is enlarged consistent with fibroid disease. No suspicious adnexal mass. Moderate colonic stool burden. Mild noninflamed colonic diverticulosis. No colonic wall thickening o r pericolonic inflammatory stranding. Stomach and small bowel are within normal limits. No evidence o f obstruction. Normal appendix. No adenopathy or free fluid. Skeletal Structures: Disc degeneration at L4-L5 with minimal anterolisthesis. No acute findings. IMPRESSION: 1. No acute findings of the abdomen or pelvis. No localized bowel inflammation. No evidence of active intraluminal GI bleed. 2. Increased density within the proximal renal collecting systems bilaterally, to include both renal pelves and right proximal ureter. This could be related to prior contrast administration. In the abse nce of a history of recent contrast administration, this could reflect bilateral renal calcific disea se. However, there is no evidence of hydronephrosis of either collecting system. 3. Cardiac enlargement with mild interstitial edema and atelectasis in the lung bases. Signer Name: Luciano Weston MD Signed: 10/19/2021 3:33 PM Workstation Name: [id number]
[2021-10-19] MEDS ORDERED: FUROSEMIDE 40 MG/4 ML INJ IV ONE (16:23)
[2021-10-19 16:45] VITALS: BP 178/92
--- NOTE | 2021-10-23 13:36 | Electrocardiograph Report ---
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
== END 2021-10-19 17:45 | disposition home or self-care (01) ==
LOC: ED 07:17
DX: R11.10 Vomiting, unspecified (principal); K59.00 Constipation, unspecified; I48.20 Chronic atrial fibrillation, unspecified; D25.9 Leiomyoma of uterus, unspecified; I11.0 Hypertensive heart disease with heart failure; I50.9 Heart failure, unspecified; F41.9 Anxiety disorder, unspecified
CPT/HCPCS: 36415; 71046; 74174; 80053; 82271; 83690; 83880; 84484; 85025; 85610; 85730; 93005; 96374; 96375; 99284; C9113; J1940; J2405; Q9967